=== PATIENT | male | born 1960 | race African-American/Black ===

== ENCOUNTER 2018-01-12 22:27 | Observation (INO) ==
--- NOTE | 2018-01-12 22:49 | DR.GENAD ---
HPI Time Seen Time Seen by Provider: 01/12/18 22:48 HPI Comment HPI Comment: SISTER SAID HER WITH RLQ ABDOMINAL PAIN SEVERAL HOURS AGO. TONIGH HE CALL TO BRING TO [facility]. HE WAS WEAK AND DIAPHORETIC. DENIES TRAUMA. Complaint/Symptoms Chief Complaint Doctors Comments: INCREASING SOB AND GENERALIZE WEAKNESS TIMES SEVERAL HOURS. RLQ ABDOMINAL PAIN WITH NAUSEA SEVERAL HOURS. Chief Complaint:: STATES HAS BEEN HURTING IN SIDE AND SOB ALL DAY Self Treatment fo Chief Complaint: NONE Nurses notes reviewed Nurses Notes Review: Yes Source History Provided: Patient Mode of Arrival Mode of Arrival: Ambulatory Timing Onset of Chief Complaint: 01/12/18 Came on: Suddenly Duration Duration: Unknown Duration: Hours Severity Severity: Moderate Modifying Factors Worsens:: EXERTION Improves:: REST. Associated Signs and Symptoms Associated Signs and Symptoms: SOB. PMH PMH Past Medical History: Yes Past Medical History: Headaches and Hypertension Past Surgical History: No Family History History of Family Medical Conditions: Yes Family Medical History: Diabetes Mellitus and Hypertension Social History Does patient currently use any type of tobacco product: No Have you used tobacco products in the last 12 months: No Type of Tobacco Use: None Does any household member use tobacco: No Alcohol Use: None Do you use any recreational Drugs:: No Lives With: Family Lives Where: Home infectious screening In the last 2 months have you had wt loss of >10#?: NO Have you had fever, night sweats or hemotysis?: No Have you traveled outside the country in the last 6 months?: No Isolation: Standard ROS Review of Systems Constitutional: Weakness and Fatigue; negative Chills and Fever ENTM: No Symptoms Reported Respiratoy: Moist Cough, Orthopnea and Short of Breath Cardiovascular: No Symptoms Reported, See HPI, Edema and Palpitations Gastrointestinal/Abdominal: Abdominal Pain and Nausea Genitourinary: No Symptoms Reported Neurological: No Symptoms Reported Musculoskeletal: No Symptoms Reported Integumentary: Other (EDEMA) Hematologic/Lymphatic: No Symptoms Reported Endocrine: No Symptoms Reported Psychiatric: No Symptoms Reported All Other Systems: Reviewed and Negative PE Vital Signs Vitals: Temperature 99.5 F Pulse Rate [Apical] 88 Pulse Rate 104 Respiratory Rate 20 Blood Pressure [Left Arm] 144/73 Blood Pressure 142/67 O2 Sat by Pulse Oximetry 96 General Limitations: No Limitations General Appearance: Alert and In Distress Head Head Exam: Atraumatic and Normocephalic Eyes Eye exam: PERRL and EOMI; negative Scleral Icterus and Conjunctival Injection ENT ENT Exam: Normal Oropharynx, Normal External Ear Exam, Mucous Membranes Moist and TM's Normal Bilaterally External Ear Exam: Normal External Inspection TM/Canal Exam: Bilateral: Normal Nose Exam: Normal Nose Exam Mouth Exam: Normal Inspection Throat Exam: Normal Inspection Neck Neck Exam: Normal Inspection Chest Chest Inspection: Symmetric Chest Wall Rise Respiratory Respiratory Exam: Respiratory Distress Respiratory Exam: Bilateral: Wheezing and Bilateral: Rhonchi and Lower: Wheezing and Lower: Rhonchi Cardiovascular Cardiovascular Exam: Regular Rate and Normal Rhythm Abdominal Exam Abdominal Exam: Normal Bowel Sounds, Distention and Tenderness Abdominal Tenderness: RLQ Extremities Extremities Exam: Edema (2PLUS LOWER EXTREMITY EDEMA.) Back Back Exam: Normal Inspection Neurologic Neurological Exam: Oriented X3 and CN II-XII Intact; negative Motor Sensory D eficit Psychiatric Psychiatric Exam: Other (SLEEPY.) Skin Skin Exam: Intact and Other (LOWER EXTREMITY EDEMA) MDM Additional Information Additional Information Obtained From: Family Differential Diagnosis Differential Diagnosis: CHEST PAIN, PNEUMONIA, MO, CHF, PE, APPENDICITIS, CHOLECYSTITIS, BOWEL OBS COURSE Treatment Treatment: SEE ORDERS. Consultation Consultation Comments: DISCUSS PATIENT WITH DR. SEGOVIA. HE WILL ADMIT PATIENT. Education/Counseling Education/Counseling: Patient and Family Educated On: Diagnosis ROR Labs Reviewed Laboratory Results Reviewed?: Yes Result Diagrams: 01/12/18 23:01 01/12/18 23:01 Laboratory: WBC 4.8 X10^3/uL (3.6-10.0) 01/12/18 23: RBC 4.74 X10^6/uL (4.7-6.0) 01/12/18 23: Hgb 12.6 g/dL (13.5-18.0) L 01/12/18 23:01 Hct 38.8 % (42.0-54.0) L 01/12/18 23: MCV 81.7 fL (80.0-100.0) 01/12/18 23: MCH 26.6 pg (27.0-34.0) L 01/12/18 23: MCHC 32.5 g/dL (33.0-35.0) L 01/12/18 23: RDW 15.1 % (11.6-16.5) 01/12/18 23:01 Plt Count 256 X10^3/uL (150.0-450.0) 01/12/18 23: MPV 7.5 fL (7.4-11.0) 01/12/18 23: Neut % (Auto) 58.4 % (42.0-75.0) 01/12/18 23: Lymph % (Auto) 31.4 % (21.0-51.0) 01/12/18 23: [place] % (Auto) 6.9 % (0.0-13.0) 01/12/18 23: Eos % (Auto) 2.6 % (0.9-2.9) 01/12/18 23:01 Baso % (Auto) 0.7 % (0.2-1.0) 01/12/18 23: Neut # (Auto) 2.8 x10^3/uL (2.2-4.8) 01/12/18 23: Lymph # (Auto) 1.5 X10^3/uL (1.3-2.9) 01/12/18 23:01 [place] # (Auto) 0.3 x10^3/uL (0.3-0.8) 01/12/18 23:01 Eos # (Auto) 0.1 x10^3/uL (0.0-0.2) 01/12/18 23:01 Baso # (Auto) 0.0 X10^3/uL (0.0-0.1) 01/12/18 23: Absolute Nucleated RBC 0.0 /100WBC 01/12/18 23: INR Target Range - 01/12/18 23: INR 1.02 (0.8-1.3) 01/12/18 23:01 APTT 28.1 SECONDS (22.9-36.5) 01/12/18 23: PTT Comment - 01/12/18 23: D-Dimer 196 ng/mL (0-400) 01/12/18 23:01 Sample Site Lr 01/12/18 22:50 ABG pH 7.420 (7.35-7.45) 01/12/18 22:50 ABG pCO2 50.0 mmHg (35.0-45.0) H 01/12/18 22:50 ABG pO2 63.0 mmHg (80.0-100.0) L 01/12/18 22:50 ABG HCO3 32.4 mmol/L (22-26) H* 01/12/18 22:50 ABG O2 Saturation 92.0 % (90-100) 01/12/18 22:50 ABG Base Excess 6.7 mmol/L (-2.0-2.0) H 01/12/18 22:50 Justice Test Pos 01/12/18 22:50 A-a Gradient 24.0 mmHg 01/12/18 22:50 FiO2 21.0 01/12/18 22:50 Blood Gas Comments Anirudh well ae 01/12/18 22:50 Sodium 141 mmol/L (136-145) 01/12/18 23:01 Corrected Sodium 141 mmol/L (136-145) 01/12/18 23:01 Potassium 3.3 mmol/L (3.5-5.1) L 01/12/18 23: Chloride 103 mmol/L (98-107) 01/12/18 23:01 Carbon Dioxide 27.5 mmol/L (21-32) 01/12/18 23:01 BUN 11 mg/dL (7-18) 01/12/18 23:01 Creatinine 1.38 mg/dL (0.70-1.30) H 01/12/18 23:01 Est GFR (MDRD) Af Amer > 60 (>60) 01/12/18 23:01 Est GFR (MDRD) Non-Af 57 (>60) L 01/12/18 23:01 Glucose 116 mg/dL (65-99) H 01/12/18 23:01 Calcium 8.6 mg/dL (8.5-10.1) 01/12/18 23:01 Corrected Calcium TNP 01/12/18 23:01 Magnesium 1.8 mg/dL (1.7-2.9) 01/12/18 23:01 Total Bilirubin 0.60 mg/dL (0.2-1.0) 01/12/18 23:01 AST 37 Units/L (15-37) 01/12/18 23:01 ALT 51 Units/L (12-78) 01/12/18 23:01 Alkaline Phosphatase 87 Units/L (46-116) 01/12/18 23:01 Creatine Kinase 517 Units/L (39-308) H 01/12/18 23:01 CK-MB (CK-2) 2.3 ng/mL (0-4.0) 01/12/18 23:01 CK/CKMB % Calc 0.4 % (<4) 01/12/18 23:01 Troponin I < 0.02 ng/mL (0-1.5) 01/12/18 23:01 Total Protein 7.5 g/dL (6.4-8.2) 01/12/18 23:01 Albumin 3.5 g/dL (3.4-5.0) 01/12/18 23:01 Globulin 4.0 g/dL (2.5-4.5) 01/12/18 23:01 Albumin/Globulin Ratio 0.9 Ratio (1.1-2.1) L 01/12/18 23:01 Specimen Type Clean catch urine 01/13/18 01:20 Urine Color Yellow (YELLOW) 01/13/18 01:20 Urine Appearance Clear (CLEAR) 01/13/18 01:20 Urine pH 7.0 (5.0 - 8.0) 01/13/18 01:20 Ur Specific [place] 1.010 (1.000-1.030) 01/13/18 01:20 Urine Protein Negative (NEGATIVE) 01/13/18 01:20 Urine Glucose (UA) Negative (NEGATIVE) 01/13/18 01:20 Urine Ketones Negative (NEGATIVE) 01/13/18 01:20 Urine Occult Blood Negative (NEGATIVE) 01/13/18 01:20 Urine Nitrite Negative (NEGATIVE) 01/13/18 01:20 Urine Bilirubin Negative (NEGATIVE) 01/13/18 01:20 Urine Urobilinogen 1+ (NORMAL) 01/13/18 01:20 Ur Leukocyte Esterase Negative (NEGATIVE) 01/13/18 01:20 Urine RBC None seen /HPF (NONE SEEN) 01/13/18 01:20 Urine WBC None seen /HPF (NONE SEEN) 01/13/18 01:20 Ur Squamous Epith Cells Rare /HPF (NEGATIVE) 01/13/18 01:20 Urine Bacteria Negative /HPF (NEGATIVE) 01/13/18 01:20 Ur Culture Indicated? No/not indicated 01/13/18 01:20 XRAY XRAY Interpreted by: Radiologist XRAY Findings: REPORT DISCUSS WITH PATIENT AND HIS SISTER. EKG Fowler: Normal Rhythm: ST Block: None Hypertrophy: None ST: Nonsp (BORDERLINE T WAVE ABNORMALILT.) Diagnosis Discharge Problem: COPD exacerbation, Acute respiratory insufficiency, Abdominal pain in male, Bronchitis
[2018-01-12 23:08] LABS: BASOPHILS % (AUTO) 0.7 % (0.2-1.0); EOSINOPHILS # (AUTO) 0.1 x10^3/uL (0.0-0.2); EOSINOPHILS % (AUTO) 2.6 % (0.9-2.9); HEMATOCRIT 38.8 % (42.0-54.0); HEMOGLOBIN 12.6 g/dL (13.5-18.0); LYMPHOCYTES # (AUTO) 1.5 X10^3/uL (1.3-2.9); LYMPHOCYTES % (AUTO) 31.4 % (21.0-51.0); MEAN CORPUSCULAR HEMOGLOBIN 26.6 pg (27.0-34.0); MEAN CORPUSCULAR HGB CONC 32.5 g/dL (33.0-35.0); MEAN CORPUSCULAR VOLUME 81.7 fL (80.0-100.0); MEAN PLATELET VOLUME 7.5 fL (7.4-11.0); MONOCYTES # (AUTO) 0.3 x10^3/uL (0.3-0.8); MONOCYTES % (AUTO) 6.9 % (0.0-13.0); NEUTROPHILS # (AUTO) 2.8 x10^3/uL (2.2-4.8); NEUTROPHILS % (AUTO) 58.4 % (42.0-75.0); PLATELET COUNT 256 X10^3/uL (150.0-450.0); RED BLOOD COUNT 4.74 X10^6/uL (4.7-6.0); RED CELL DISTRIBUTION WIDTH 15.1 % (11.6-16.5); WHITE BLOOD COUNT 4.8 X10^3/uL (3.6-10.0)
[2018-01-12 23:08] LABS: ABG BASE EXCESS 6.7 mmol/L (-2.0-2.0)
[2018-01-12 23:09] LABS: ABG ALLEN TEST POS; ABG HCO3 32.4 mmol/L (22-26)
[2018-01-12 23:25] LABS: BLOOD UREA NITROGEN 11 mg/dL (7-18); CALCIUM 8.6 mg/dL (8.5-10.1); CARBON DIOXIDE 27.5 mmol/L (21-32); CHLORIDE 103 mmol/L (98-107); COR NA(FOR HYPERGLY) 141 mmol/L (136-145); CREATININE 1.38 mg/dL (0.70-1.30); SODIUM 141 mmol/L (136-145); TROPONIN I < 0.02 ng/mL (0-1.5); eGFR NON BLACK RACES 57 (>60)
[2018-01-12 23:29] LABS: ALANINE AMINOTRANSFERASE 51 Units/L (12-78); ALBUMIN 3.5 g/dL (3.4-5.0); ALKALINE PHOSPHATASE 87 Units/L (46-116); ASPARTATE AMINO TRANSFERASE 37 Units/L (15-37); CKMB % 0.4 % (<4); CREATINE KINASE 517 Units/L (39-308); CREATINE KINASE MB 2.3 ng/mL (0-4.0); MAGNESIUM 1.8 mg/dL (1.7-2.9); TOTAL PROTEIN 7.5 g/dL (6.4-8.2)
--- NOTE | 2018-01-13 00:36 | RAD ---
HISTORY: 57-year-old male with shortness of breath. Study: Frontal view of the chest. Comparison: None. Findings: The trachea is midline. The cardiac silhouette is enlarged with low lung volumes and prominent interstitium. No effusion, pneumothorax or consolidation. Soft tissues are unremarkable. Osseous structures are unremarkable. IMPRESSION: 1. Cardiomegaly with findings consistent with chronic interstitial disease suggesting COPD. Reported By:
[2018-01-13] MEDS ORDERED: DUONEB 0.5 MG/3 MG NEB ONE (00:42)
[2018-01-13] MEDS ORDERED: LASIX IVP ONE ×2 (00:42→00:56)
[2018-01-13] MEDS ORDERED: SOLU-Medrol 125 MG VIAL IVP ONE (00:42)
[2018-01-13] MEDS ORDERED: ROCEPHIN VIAL 1 GRAM IVP ONE (00:52)
[2018-01-13] MEDS ORDERED: SOLU-Medrol 125 MG VIAL ONE (00:55)
[2018-01-13] MEDS ORDERED: ROCEPHIN VIAL 1 GRAM ONE (00:55)
[2018-01-13] MEDS ORDERED: K-LYTE EFFERVESCENT PO ONE (01:13)
[2018-01-13] MEDS ORDERED: K-LYTE EFFERVESCENT ONE (01:25)
[2018-01-13 01:31] LABS: BILIRUBIN,URINE NEGATIVE (NEGATIVE); BLOOD/HEMOGLOBIN,URINE NEGATIVE (NEGATIVE); GLUCOSE, URINE NEGATIVE (NEGATIVE); KETONES,URINE NEGATIVE (NEGATIVE); LEUKOCYTE ESTERASE ,URINE NEGATIVE (NEGATIVE); NITRITES,URINE NEGATIVE (NEGATIVE); PROTEIN,URINE NEGATIVE (NEGATIVE); UROBILINOGEN,URINE 1+ (NORMAL)
[2018-01-13 01:33] LABS: APPEARANCE,URINE CLEAR (CLEAR); COLOR,URINE YELLOW (YELLOW)
[2018-01-13 01:34] LABS: BACTERIA,URINE NEGATIVE /HPF (NEGATIVE); RBC,URINE NONE SEEN /HPF (NONE SEEN); SQUAMOUS EPITHELIAL CELL,UR RARE /HPF (NEGATIVE)
--- NOTE | 2018-01-13 04:30 | CT ---
CT ABDOMEN AND PELVIS WITH ORAL AND IV CONTRAST CLINICAL HISTORY: 57-year-old male with right lower quadrant pain and shortness of breath. COMPARISON: None. TECHNIQUE: Multiple contiguous axial images were obtained following the administration of 100 mL Omnipaque 350 intravenously and oral contrast. Images were reformatted in the coronal and sagittal planes. FINDINGS: The lung bases are clear without pulmonary nodules, masses, or pleural fluid collections. The inferior imaged heart is normal in size and there is no pericardial effusion. Diffuse hepatic steatosis without focal mass lesion or biliary ductal dilatation. Spleen, pancreas and gallbladder are unremarkable. The adrenal glands are normal bilaterally. The kidneys perfuse in a normal fashion and the ureters run in an unobstructed course to a moderately distended urinary bladder. No nephroureterolithiasis or hydroureteronephrosis. The prostate, seminal vesicles, and external genitalia are within normal limits. The bowel is without obstruction or inflammation and there is no free fluid or free air within the peritoneal cavity. Appendix is normal. Diverticulosis without CT evidence of diverticulitis. There are no pathologically enlarged lymph nodes in the abdomen or pelvis. The arteriovascular structures are within normal limits. Soft tissues are normal. The osseous structures are intact without fracture or malalignment. IMPRESSION: 1. No acute intra-abdominal or pelvic pathology. 2. Hepatic steatosis, correlate with serology. 3. Normal appendix. 4. Diverticulosis without CT evidence of diverticulitis. Reported By:
[2018-01-13 05:43] LABS: BASOPHILS % (AUTO) 0.4 % (0.2-1.0); EOSINOPHILS % (AUTO) 0.3 % (0.9-2.9); HEMATOCRIT 41.8 % (42.0-54.0); HEMOGLOBIN 13.7 g/dL (13.5-18.0); LYMPHOCYTES # (AUTO) 0.6 X10^3/uL (1.3-2.9); LYMPHOCYTES % (AUTO) 12.1 % (21.0-51.0); MEAN CORPUSCULAR HEMOGLOBIN 26.7 pg (27.0-34.0); MEAN CORPUSCULAR HGB CONC 32.8 g/dL (33.0-35.0); MEAN CORPUSCULAR VOLUME 81.6 fL (80.0-100.0); MEAN PLATELET VOLUME 7.6 fL (7.4-11.0); MONOCYTES # (AUTO) 0.1 x10^3/uL (0.3-0.8); MONOCYTES % (AUTO) 1.6 % (0.0-13.0); NEUTROPHILS # (AUTO) 4.2 x10^3/uL (2.2-4.8); NEUTROPHILS % (AUTO) 85.6 % (42.0-75.0); PLATELET COUNT 291 X10^3/uL (150.0-450.0); RED BLOOD COUNT 5.13 X10^6/uL (4.7-6.0); RED CELL DISTRIBUTION WIDTH 15.1 % (11.6-16.5); WHITE BLOOD COUNT 4.9 X10^3/uL (3.6-10.0)
[2018-01-13 06:00] LABS: ALANINE AMINOTRANSFERASE 57 Units/L (12-78); ALBUMIN 3.8 g/dL (3.4-5.0); ALKALINE PHOSPHATASE 96 Units/L (46-116); ASPARTATE AMINO TRANSFERASE 40 Units/L (15-37); BLOOD UREA NITROGEN 13 mg/dL (7-18); CHLORIDE 102 mmol/L (98-107); CHOL/HDL RATIO 4.4 (0.0-5.0); CHOLESTEROL 198 mg/dL (0-200); COR NA(FOR HYPERGLY) 141 mmol/L (136-145); CREATININE 1.41 mg/dL (0.70-1.30); HDL CHOLESTEROL 45 mg/dL (40-60); SODIUM 139 mmol/L (136-145); TOTAL PROTEIN 8.3 g/dL (6.4-8.2); TRIGLYCERIDES 52 mg/dL (0-150); eGFR NON BLACK RACES 55 (>60)
[2018-01-13 06:13] LABS: BILIRUBIN,URINE NEGATIVE (NEGATIVE); BLOOD/HEMOGLOBIN,URINE NEGATIVE (NEGATIVE); GLUCOSE, URINE NEGATIVE (NEGATIVE); KETONES,URINE NEGATIVE (NEGATIVE); LEUKOCYTE ESTERASE ,URINE NEGATIVE (NEGATIVE); NITRITES,URINE NEGATIVE (NEGATIVE); PROTEIN,URINE 1+ (NEGATIVE); UROBILINOGEN,URINE NORMAL (NORMAL)
[2018-01-13 06:26] LABS: CKMB % 0.3 % (<4); CREATINE KINASE 556 Units/L (39-308); CREATINE KINASE MB 1.5 ng/mL (0-4.0); TROPONIN I < 0.02 ng/mL (0-1.5)
[2018-01-13 06:34] LABS: APPEARANCE,URINE CLEAR (CLEAR); COLOR,URINE YELLOW (YELLOW); RBC,URINE NONE SEEN /HPF (NONE SEEN)
[2018-01-13 06:35] LABS: BACTERIA,URINE NEGATIVE /HPF (NEGATIVE); MUCUS,URINE FEW /HPF (NEGATIVE); SQUAMOUS EPITHELIAL CELL,UR RARE /HPF (NEGATIVE)
[2018-01-13] MEDS ORDERED: NS 500 ML IV 500 ML IV ONE (07:53)
[2018-01-13] MEDS: KLOR-CON PO SCH (08:06)
[2018-01-13] MEDS: LASIX IVP SCH (08:06)
[2018-01-13] MEDS: LEVAQUIN PREMIX IV 500 MG 500 MG/100 ML BAG IV SCH (08:06)
[2018-01-13] MEDS: DUONEB 0.5 MG/3 MG NEB SCH ×5 (09:18→20:52)
--- NOTE | 2018-01-13 10:09 | RAD ---
History: Shortness of breath Study: PA and lateral chest Comparison: Yesterday Findings: The lungs are clear and the heart and mediastinum are unremarkable. There is no edema or effusion or congestion. Impression: No acute cardiopulmonary disease Reported By:
[2018-01-13 10:18] LABS: ABG BASE EXCESS 4.5 mmol/L (-2.0-2.0)
[2018-01-13 10:20] LABS: ABG HCO3 30.8 mmol/L (22-26)
[2018-01-13 10:21] LABS: ABG ALLEN TEST POS
[2018-01-13 11:48] LABS: CKMB % 0.3 % (<4); CREATINE KINASE 638 Units/L (39-308); CREATINE KINASE MB 2.2 ng/mL (0-4.0); TROPONIN I < 0.02 ng/mL (0-1.5)
--- NOTE | 2018-01-13 13:12 | DR.H&P ---
H&P - History & Physical for Day of: H&P Date: 01/12/18 - Chief Complaint Chief Complaint: SOB, WEAKNESS - History of Present Illness History of Present Illness: 57 BM ER ADMISSION AFTER PRESENTING WITH CO SOB AND WEAKNESS WITH RUQ PAIN ONSET YESTERDAY, DENIES FEVER N/V. PT HAD CXR IN ER WITH COPD FINDINGS, PT HAS PMH OF HTN, DENIES DM OR CAD. PT DENIES SMOKING OR KNOWN ASTHMA. PT TAKES BENICAR FOR HTN. PT ADMITTED FOR TREATMENT OF SOB, COPD EXACERBATION - Past Medical History Past Medical History: Hypertension, Headaches - Family History Family Medical History: Diabetes Mellitus, Hypertension - Social History Does patient currently use any type of tobacco product: No Have you used tobacco products in the last 12 months: No Type of Tobacco Use: None Does any household member use tobacco: No Alcohol Use: Rarely Drug Use: None - Medications Home Medications: No Known Drug Allergies Allergy (Verified 01/12/18 22:42) - Review of Systems Constitutional: Chills, Weakness Eyes: No Symptoms Reported ENT: No Symptoms Reported Respiratory: Shortness of Breath Gastrointestinal: Nausea, Abdominal Pain Genitourinary: No Symptoms Reported Musculoskeletal: No Symptoms Reported Skin: No Symptoms Reported Neurological: Weakness - Physical Exam Vital Signs: Temperature 98.5 F Pulse Rate [Apical] 99 Pulse Rate 104 Respiratory Rate 20 Blood Pressure [Right Arm] 153/75 Blood Pressure [Left Arm] 160/77 Blood Pressure 142/67 O2 Sat by Pulse Oximetry 96 Oriented: Normal, Person Ear: Normal Nose: Normal Throat: Normal Respiratory: RLL Diminished, LLL Diminished Cardiovascular: Normal, Edema (BILATERAL LE TRACE EDEMA) Auscultation: Bowel Sounds: Normal Palpation: Normal Tenderness: Normal Skin: Normal Musculoskeletal: Normal Psychiatric: Anxiety Affect: Anxious Speech Pattern: Clear, Appropriate - Assessment/Plan (1) Acute respiratory insufficiency Status: Acute Plan: ADMIT, SERIAL CE, EKG. RESP CONSULT, SUPPLEMENTAL O2. REPEAT AM CXR, IV LASIX, STRICT I & OS. VERIFY HOME MEDICATION (2) Hypertension Status: Acute (3) COPD exacerbation Status: Acute (4) Bronchitis Status: Acute - Allergies Allergies/Adverse Reactions: Allergies Allergy/AdvReac Type Severity Reaction Status Date / Time No Known Drug Allergies Allergy Verified 01/12/18 22:42
--- NOTE | 2018-01-13 13:23 | PCM.PROG ---
Progress Note - Progress Note for Day of Date of Exam: 01/13/18 - Subjective Subjective: 57 BM ER ADMISSION ON 01/12 WITH CO WEAKNESS AND SOB. PT CXR HAD FINDINGS CONSISTENT WITH COPD. PT CONTINUES WITH CO SOB THIS AM, REVIEWED CE AND EKG WITH PT, DENIES PAIN THIS AM. PT CURRENTLY ON IV ATBX, RESP THERAPY, CTA CHEST ORDERED R/O PE - Past Medical Family Social History Past Med/Fam/Surg Hx: No changes since H&P Allergies: Allergies No Known Drug Allergies Allergy (Verified 01/12/18 22:42) - Review of Systems ROS: No change since H&P - Vital Signs and I&O's Vital Signs: Temperature 98.1 F Pulse Rate [Apical] 110 Pulse Rate 104 Respiratory Rate 20 Blood Pressure [Right Arm] 153/75 Blood Pressure [Left Arm] 151/79 Blood Pressure 142/67 O2 Sat by Pulse Oximetry 95 Intake and Output: Intake & Output 01/11/18 01/12/18 01/13/18 01/14/18 11:59 11:59 11:59 11:59 Intake Total 230 / 230 Output Total 1600 / 1600 Balance -1370 / -1370 - Physical Exam Oriented: Normal, Person Ear: Normal Nose: Normal Throat: Normal Respiratory: Diminished Cardiovascular: Normal, Edema (BILATERAL LE TRACE EDEMA) Auscultation: Bowel Sounds: Normal Tenderness: Normal Skin: Normal Musculoskeletal: Normal Psychiatric: Anxiety Affect: Anxious Speech Pattern: Clear, Appropriate - Laboratory and Diagnostics Result Diagrams: 01/13/18 05:20 01/13/18 05:20 Labs: Laboratory WBC 4.9 X10^3/uL (3.6-10.0) 01/13/18 05:20 RBC 5.13 X10^6/uL (4.7-6.0) 01/13/18 05:20 Hgb 13.7 g/dL (13.5-18.0) 01/13/18 05:20 Hct 41.8 % (42.0-54.0) L 01/13/18 05:20 MCV 81.6 fL (80.0-100.0) 01/13/18 05:20 MCH 26.7 pg (27.0-34.0) L 01/13/18 05:20 MCHC 32.8 g/dL (33.0-35.0) L 01/13/18 05:20 RDW 15.1 % (11.6-16.5) 01/13/18 05:20 Plt Count 291 X10^3/uL (150.0-450.0) 01/13/18 05:20 MPV 7.6 fL (7.4-11.0) 01/13/18 05:20 Neut % (Auto) 85.6 % (42.0-75.0) H 01/13/18 05:20 Lymph % (Auto) 12.1 % (21.0-51.0) L 01/13/18 05:20 [place] % (Auto) 1.6 % (0.0-13.0) 01/13/18 05:20 Eos % (Auto) 0.3 % (0.9-2.9) L 01/13/18 05:20 Baso % (Auto) 0.4 % (0.2-1.0) 01/13/18 05:20 Neut # (Auto) 4.2 x10^3/uL (2.2-4.8) 01/13/18 05:20 Lymph # (Auto) 0.6 X10^3/uL (1.3-2.9) L 01/13/18 05:20 [place] # (Auto) 0.1 x10^3/uL (0.3-0.8) L 01/13/18 05:20 Eos # (Auto) 0.0 x10^3/uL (0.0-0.2) 01/13/18 05:20 Baso # (Auto) 0.0 X10^3/uL (0.0-0.1) 01/13/18 05:20 Absolute Nucleated RBC 0.0 /100WBC 01/13/18 05:20 INR Target Range - 01/12/18 23:01 INR 1.02 (0.8-1.3) 01/12/18 23:01 APTT 28.1 SECONDS (22.9-36.5) 01/12/18 23:01 PTT Comment - 01/12/18 23:01 D-Dimer 196 ng/mL (0-400) 01/12/18 23:01 Sample Site Rrad 01/13/18 10:13 ABG pH 7.380 (7.35-7.45) 01/13/18 10:13 ABG pCO2 52.0 mmHg (35.0-45.0) H* 01/13/18 10:13 ABG pO2 60.0 mmHg (80.0-100.0) L 01/13/18 10:13 ABG HCO3 30.8 mmol/L (22-26) H* 01/13/18 10:13 ABG O2 Saturation 90.0 % (90-100) 01/13/18 10:13 ABG Base Excess 4.5 mmol/L (-2.0-2.0) H 01/13/18 10:13 Justice Test Pos 01/13/18 10:13 A-a Gradient 25.0 mmHg 01/13/18 10:13 FiO2 21.0 01/13/18 10:13 Blood Gas Comments Anirudh well 01/13/18 10:13 Sodium 139 mmol/L (136-145) 01/13/18 05:20 Corrected Sodium 141 mmol/L (136-145) 01/13/18 05:20 Potassium 4.0 mmol/L (3.5-5.1) 01/13/18 05:20 Chloride 102 mmol/L (98-107) 01/13/18 05:20 Carbon Dioxide 27.0 mmol/L (21-32) 01/13/18 05:20 BUN 13 mg/dL (7-18) 01/13/18 05:20 Creatinine 1.41 mg/dL (0.70-1.30) H 01/13/18 05:20 Est GFR (MDRD) Af Amer > 60 (>60) 01/13/18 05:20 Est GFR (MDRD) Non-Af 55 (>60) L 01/13/18 05:20 Glucose 172 mg/dL (65-99) H 01/13/18 05:20 Calcium 9.0 mg/dL (8.5-10.1) 01/13/18 05:20 Corrected Calcium TNP 01/13/18 05:20 Magnesium 1.8 mg/dL (1.7-2.9) 01/12/18 23:01 Total Bilirubin 0.40 mg/dL (0.2-1.0) 01/13/18 05:20 AST 40 Units/L (15-37) H 01/13/18 05:20 ALT 57 Units/L (12-78) 01/13/18 05:20 Alkaline Phosphatase 96 Units/L (46-116) 01/13/18 05:20 Creatine Kinase 638 Units/L (39-308) H 01/13/18 11:18 CK-MB (CK-2) 2.2 ng/mL (0-4.0) 01/13/18 11:18 CK/CKMB % Calc 0.3 % (<4) 01/13/18 11:18 Troponin I < 0.02 ng/mL (0-1.5) 01/13/18 11:18 Total Protein 8.3 g/dL (6.4-8.2) H 01/13/18 05:20 Albumin 3.8 g/dL (3.4-5.0) 01/13/18 05:20 Globulin 4.5 g/dL (2.5-4.5) 01/13/18 05:20 Albumin/Globulin Ratio 0.8 Ratio (1.1-2.1) L 01/13/18 05:20 Triglycerides 52 mg/dL (0-150) 01/13/18 05:20 Cholesterol 198 mg/dL (0-200) 01/13/18 05:20 LDL Cholesterol, Calc 143 mg/dL (0-100) H 01/13/18 05:20 HDL Cholesterol 45 mg/dL (40-60) 01/13/18 05:20 Cholesterol/HDL Ratio 4.4 (0.0-5.0) 01/13/18 05:20 Specimen Type Clean catch urine 01/13/18 06:01 Urine Color Yellow (YELLOW) 01/13/18 06:01 Urine Appearance Clear (CLEAR) 01/13/18 06:01 Urine pH 7.0 (5.0 - 8.0) 01/13/18 06:01 Ur Specific [place] 1.010 (1.000-1.030) 01/13/18 06:01 Urine Protein 1+ (NEGATIVE) 01/13/18 06:01 Urine Glucose (UA) Negative (NEGATIVE) 01/13/18 06:01 Urine Ketones Negative (NEGATIVE) 01/13/18 06:01 Urine Occult Blood Negative (NEGATIVE) 01/13/18 06:01 Urine Nitrite Negative (NEGATIVE) 01/13/18 06:01 Urine Bilirubin Negative (NEGATIVE) 01/13/18 06:01 Urine Urobilinogen Normal (NORMAL) 01/13/18 06:01 Ur Leukocyte Esterase Negative (NEGATIVE) 01/13/18 06:01 Urine RBC None seen /HPF (NONE SEEN) 01/13/18 06:01 Urine WBC 0-2 /HPF (NONE SEEN) 01/13/18 06:01 Ur Squamous Epith Cells Rare /HPF (NEGATIVE) 01/13/18 06:01 Urine Bacteria Negative /HPF (NEGATIVE) 01/13/18 06:01 Urine Mucus Few /HPF (NEGATIVE) 01/13/18 06:01 Ur Culture Indicated? No/not indicated 01/13/18 06:01 - Plan (1) Acute respiratory insufficiency Status: Acute Plan: SERIAL CE, EKG ON ADMISSION. RESP CONSULT, SUPPLEMENTAL O2, IV LASIX, STRICT I & OS. VERIFY HOME MEDICATION. CTA CHEST, REPEAT ABD ON ROOM AIR (2) Hypertension Status: Acute (3) COPD exacerbation Status: Acute (4) Bronchitis Status: Acute
[2018-01-14] MEDS: DUONEB 0.5 MG/3 MG NEB SCH ×3 (00:58→08:55)
[2018-01-14 05:31] LABS: BASOPHILS # (AUTO) 0.1 X10^3/uL (0.0-0.1); BASOPHILS % (AUTO) 0.9 % (0.2-1.0); EOSINOPHILS % (AUTO) 0.4 % (0.9-2.9); HEMATOCRIT 39.2 % (42.0-54.0); HEMOGLOBIN 12.8 g/dL (13.5-18.0); LYMPHOCYTES # (AUTO) 1.9 X10^3/uL (1.3-2.9); LYMPHOCYTES % (AUTO) 19.6 % (21.0-51.0); MEAN CORPUSCULAR HEMOGLOBIN 26.5 pg (27.0-34.0); MEAN CORPUSCULAR HGB CONC 32.6 g/dL (33.0-35.0); MEAN CORPUSCULAR VOLUME 81.4 fL (80.0-100.0); MEAN PLATELET VOLUME 7.8 fL (7.4-11.0); MONOCYTES # (AUTO) 0.8 x10^3/uL (0.3-0.8); MONOCYTES % (AUTO) 8.1 % (0.0-13.0); NEUTROPHILS # (AUTO) 6.9 x10^3/uL (2.2-4.8); PLATELET COUNT 296 X10^3/uL (150.0-450.0); RED BLOOD COUNT 4.81 X10^6/uL (4.7-6.0); RED CELL DISTRIBUTION WIDTH 15.2 % (11.6-16.5); WHITE BLOOD COUNT 9.7 X10^3/uL (3.6-10.0)
[2018-01-14 05:40] LABS: ALANINE AMINOTRANSFERASE 54 Units/L (12-78); ALBUMIN 3.3 g/dL (3.4-5.0); ALKALINE PHOSPHATASE 89 Units/L (46-116); ASPARTATE AMINO TRANSFERASE 44 Units/L (15-37); BLOOD UREA NITROGEN 13 mg/dL (7-18); CALCIUM 8.4 mg/dL (8.5-10.1); CARBON DIOXIDE 26.1 mmol/L (21-32); CHLORIDE 103 mmol/L (98-107); COR NA(FOR HYPERGLY) 144 mmol/L (136-145); CREATININE 1.19 mg/dL (0.70-1.30); SODIUM 141 mmol/L (136-145); TOTAL PROTEIN 7.5 g/dL (6.4-8.2); eGFR NON BLACK RACES > 60 (>60)
[2018-01-14] MEDS ORDERED: NS 100 ML IV 100 ML IV ONE (06:07)
--- NOTE | 2018-01-14 07:13 | CT ---
HISTORY: Shortness of breath Study: CTA chest with contrast for pulmonary embolus Comparison: None Technique: Axial post-contrast images with coronal, sagittal, and three-dimensional maximum intensity projection images obtained and evaluated. Dose reduction procedures were used with mA/kv adjusted for body size. Findings: The examination is nondiagnostic for the determination of acute pulmonary thromboembolic disease due to suboptimal bolus timing. Examination of the mediastinum demonstrated no evidence for mediastinal masses, enlarged lymphadenopathy, or enlarged hilar adenopathy. No pleural effusions are identified. No chest wall or axillary abnormality is identified. Those portions of the upper abdominal organs visualized were within normal limits. Examination of the lung jaeger demonstrated no significant nodules, masses, alveolar infiltrates, areas of consolidation, peribronchial thickening, or bronchiectasis. IMPRESSION: The examination is nondiagnostic for the determination of acute pulmonary thromboembolic disease due to suboptimal bolus timing Lungs clear Reported By:
[2018-01-14] MEDS: LASIX IVP SCH (08:25)
[2018-01-14] MEDS: LEVAQUIN PREMIX IV 500 MG 500 MG/100 ML BAG IV SCH (08:26)
[2018-01-14] MEDS: KLOR-CON PO SCH (08:28)
[2018-01-14] MEDS ORDERED: SOLU-Medrol 40 MG VIAL IVP SCH (09:00)
[2018-01-14 09:04] VITALS: BP 171/87
[2018-01-14 09:43] VITALS: BMI 47.0
[2018-01-14 12:19] LABS: ABG BASE EXCESS 4.4 mmol/L (-2.0-2.0)
[2018-01-14 12:20] LABS: ABG ALLEN TEST POS; ABG HCO3 31.1 mmol/L (22-26); FRACTIONATED INSPIRED OXYGEN 21
== END 2018-01-14 13:15 | disposition home or self-care (01) ==
LOC: ER 22:31 → MED/SURG 22:31
PROVIDERS: ADMIT Internal Medicine; ATTEND Internal Medicine
DX: K52.89 Other specified noninfective gastroenteritis and colitis; R06.89 Other abnormalities of breathing; R10.31 Right lower quadrant pain; J20.8 Acute bronchitis due to other specified organisms; R06.02 Shortness of breath; R60.0 Localized edema; R94.4 Abnormal results of kidney function studies; R10.84 Generalized abdominal pain; R53.1 Weakness; J44.1 Chronic obstructive pulmonary disease with (acute) exacerbation; R94.31 Abnormal electrocardiogram [ECG] [EKG]; R07.89 Other chest pain; I51.7 Cardiomegaly
CPT/HCPCS: 36415; 36600; 71010; 71020; 71045; 71046; 71275; 74177; 80053; 80061; 81001; 82550; 82553; 82803; 83735; 84484; 85025; 85378; 85610; 85730; 87040; 93005; 93010; 94640; 94760; 96365; 96372; 96374; 96375; 99284; A4216; A4222; G0378; J0696; J1940; J1956; J2920; J2930; J7040; J7620; J8499

== ENCOUNTER 2019-08-08 18:43 | Inpatient (IN) ==
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
[2019-08-08] MEDS ORDERED: LASIX IVP ONE ×2 (20:07→20:37)
[2019-08-08 20:19] LABS: BILIRUBIN,URINE NEGATIVE (NEGATIVE); BLOOD/HEMOGLOBIN,URINE NEGATIVE (NEGATIVE); GLUCOSE, URINE NEGATIVE (NEGATIVE); KETONES,URINE NEGATIVE (NEGATIVE); LEUKOCYTE ESTERASE ,URINE NEGATIVE (NEGATIVE); NITRITES,URINE NEGATIVE (NEGATIVE); PROTEIN,URINE 1+ (NEGATIVE); UROBILINOGEN,URINE NORMAL (NORMAL)
[2019-08-08 20:23] LABS: APPEARANCE,URINE CLEAR (CLEAR); COLOR,URINE YELLOW (YELLOW)
[2019-08-08 20:33] LABS: BACTERIA,URINE NEGATIVE /HPF (NEGATIVE); CALCIUM OXALATE CRYSTALS,UR MODERATE /HPF (NEGATIVE); MUCUS,URINE FEW /HPF (NEGATIVE); RBC,URINE NONE SEEN /HPF (0-3); SQUAMOUS EPITHELIAL CELL,UR RARE /HPF (NEGATIVE)
--- NOTE | 2019-08-08 20:43 | CT ---
HISTORYPatient stated he passed out twice a day.STUDYBRAIN W/O CONCOMPARISONJune 2017.TECHNIQUEMultiple axial images of the head were obtained from the skull base to the vertex without administration of IV contrast. Sagittal and coronal reformatted images were performed. Automated exposure control (AEC) was utilized to adjust the MA and/or kV.FINDINGSThe sulci, cisterns and ventricles are age appropriate. There is no evidence of acute territorial infarction, hemorrhage, mass, mass effect, or midline shift. There are no abnormal intra-axial or extra-axial fluid collections.There is no evidence of acute osseous abnormality. There is a chronic nasal bone fracture on the left. There is no significant soft tissue swelling. Visualized paranasal sinuses and mastoid air cells are predominately clear.IMPRESSION1. No evidence of acute intracranial abnormality.Electronically signed by: MIRTHA GUALLPA (Aug 08, 2019 20:42:04)
[2019-08-08 20:52] LABS: BASOPHILS % (AUTO) 0.6 % (0.2-1.0); EOSINOPHILS # (AUTO) 0.2 x10^3/uL (0.0-0.2); EOSINOPHILS % (AUTO) 2.9 % (0.9-2.9); HEMATOCRIT 37.8 % (42.0-54.0); HEMOGLOBIN 12.3 g/dL (13.5-18.0); LYMPHOCYTES # (AUTO) 1.7 X10^3/uL (1.3-2.9); LYMPHOCYTES % (AUTO) 30.7 % (21.0-51.0); MEAN CORPUSCULAR HEMOGLOBIN 26.7 pg (27.0-34.0); MEAN CORPUSCULAR HGB CONC 32.4 g/dL (33.0-35.0); MEAN CORPUSCULAR VOLUME 82.3 fL (80.0-100.0); MEAN PLATELET VOLUME 7.6 fL (7.4-11.0); MONOCYTES # (AUTO) 0.5 x10^3/uL (0.3-0.8); MONOCYTES % (AUTO) 8.2 % (0.0-13.0); NEUTROPHILS # (AUTO) 3.2 x10^3/uL (2.2-4.8); NEUTROPHILS % (AUTO) 57.6 % (42.0-75.0); PLATELET COUNT 253 X10^3/uL (150.0-450.0); RED BLOOD COUNT 4.59 X10^6/uL (4.7-6.0); RED CELL DISTRIBUTION WIDTH 15.8 % (11.6-16.5); WHITE BLOOD COUNT 5.5 X10^3/uL (3.6-10.0)
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
[2019-08-08 21:07] LABS: BLOOD UREA NITROGEN 8 mg/dL (7-18); CALCIUM 8.9 mg/dL (8.5-10.1); CARBON DIOXIDE 31.7 mmol/L (21-32); CHLORIDE 104 mmol/L (98-107); COR NA(FOR HYPERGLY) 140 mmol/L (136-145); CREATININE 1.57 mg/dL (0.70-1.30); SODIUM 139 mmol/L (136-145); TROPONIN I < 0.02 ng/mL (0-1.5); eGFR NON BLACK RACES 49 (>60)
[2019-08-08 21:12] LABS: ALANINE AMINOTRANSFERASE 35 Units/L (12-78); ALBUMIN 3.3 g/dL (3.4-5.0); ALKALINE PHOSPHATASE 91 Units/L (46-116); ASPARTATE AMINO TRANSFERASE 23 Units/L (15-37); CKMB % 0.4 % (<4); COR CA(FOR HYPOALB) 9.5 mg/dL (8.5-10.1); CREATINE KINASE 267 Units/L (39-308); CREATINE KINASE MB < 1.0 ng/mL (0-4.0); MAGNESIUM 2.2 mg/dL (1.7-2.9); TOTAL PROTEIN 7.1 g/dL (6.4-8.2)
--- NOTE | 2019-08-08 22:26 | CT ---
HISTORYSYNCOPE, ABNORMAL D-DIMERSTUDYCTA [id number] axial images of the chest were obtained from the thoracic inlet to the upper abdomen after the administration of IV contrast. 3D reconstructions utilizing axi al MIPS imaging was performed and reviewed. Dose reduction techniques including Automated Exposure C ontrol (AEC) and adjustment of mA and kV were utilized.FINDINGSThe mediastinum does not demonstrate s ignificant pathological lymphadenopathy. There is no paracardial effusion observed. The thoracic ao rta is normal in its contour without evidence for aneurysmal dilatation. There are several small emily ling defects within segmental and subsegmental branches supplying the right and left upper and lower lobes. No large emboli are seen within the pulmonary trunk or main right and left pulmonary arteries. There is no CT evidence of right heart strain.Evaluation of the lung parenchyma fails to demonstrate focal consolidation or effusion . No pulmonary nodule or mass can be identified. The bony thorax is unremarkable in its appearance . The visualized portions of the upper abdomen are grossly unremarkab le .IMPRESSIONAcute pulmonary embolic disease with several small filling defects within segmental and subsegmental branches supplying the right and left upper and lower lobes. Clot burden low.The availa bility of the report and findings were communicated to Dr. Marrero by call support on 10:[address] Gerald Anne.Electronically signed by: Gerald Anne (Aug 08, 2019 22:24:12)
[2019-08-09] MEDS ORDERED: HumuLIN R SC PRN (00:41)
[2019-08-09] MEDS ORDERED: HEPARIN SODIUM INJ 5000 UNITS ONE ×3 (00:59→15:56)
[2019-08-09] MEDS ORDERED: HEPARIN SODIUM IN D5W 25,000 UNITS/500 ML BAG IV ONE (01:00)
[2019-08-09] MEDS: HEPARIN SODIUM IN D5W 25,000 UNITS/500 ML BAG IV PRN (01:13)
[2019-08-09] MEDS ORDERED: HEPARIN SODIUM INJ 5000 UNITS IVP ONE ×3 (01:34→15:29)
[2019-08-09] MEDS: NS 1000 ML 1,000 ML IV SCH ×2 (02:17→18:22)
[2019-08-09] MEDS: PEPCID 20 MG IV PREMIX* 20 MG/50 ML BAG IV SCH ×3 (02:18→21:11)
[2019-08-09 02:43] VITALS: BMI 50.5
[2019-08-09 07:28] LABS: BASOPHILS % (AUTO) 0.6 % (0.2-1.0); EOSINOPHILS # (AUTO) 0.1 x10^3/uL (0.0-0.2); EOSINOPHILS % (AUTO) 3.1 % (0.9-2.9); HEMATOCRIT 39.1 % (42.0-54.0); HEMOGLOBIN 12.5 g/dL (13.5-18.0); LYMPHOCYTES # (AUTO) 1.4 X10^3/uL (1.3-2.9); LYMPHOCYTES % (AUTO) 29.8 % (21.0-51.0); MEAN CORPUSCULAR HEMOGLOBIN 26.6 pg (27.0-34.0); MEAN CORPUSCULAR HGB CONC 32.1 g/dL (33.0-35.0); MEAN CORPUSCULAR VOLUME 82.9 fL (80.0-100.0); MEAN PLATELET VOLUME 7.2 fL (7.4-11.0); MONOCYTES # (AUTO) 0.4 x10^3/uL (0.3-0.8); MONOCYTES % (AUTO) 8.9 % (0.0-13.0); NEUTROPHILS # (AUTO) 2.6 x10^3/uL (2.2-4.8); NEUTROPHILS % (AUTO) 57.6 % (42.0-75.0); PLATELET COUNT 271 X10^3/uL (150.0-450.0); RED BLOOD COUNT 4.72 X10^6/uL (4.7-6.0); RED CELL DISTRIBUTION WIDTH 15.6 % (11.6-16.5); WHITE BLOOD COUNT 4.6 X10^3/uL (3.6-10.0)
[2019-08-09 07:39] LABS: ALANINE AMINOTRANSFERASE 34 Units/L (12-78); ALBUMIN 3.3 g/dL (3.4-5.0); ALKALINE PHOSPHATASE 88 Units/L (46-116); ASPARTATE AMINO TRANSFERASE 21 Units/L (15-37); BLOOD UREA NITROGEN 10 mg/dL (7-18); CALCIUM 8.9 mg/dL (8.5-10.1); CARBON DIOXIDE 33.1 mmol/L (21-32); CHLORIDE 102 mmol/L (98-107); COR CA(FOR HYPOALB) 9.5 mg/dL (8.5-10.1); COR NA(FOR HYPERGLY) 141 mmol/L (136-145); CREATININE 1.42 mg/dL (0.70-1.30); SODIUM 140 mmol/L (136-145); TOTAL PROTEIN 7.2 g/dL (6.4-8.2); eGFR NON BLACK RACES 55 (>60)
[2019-08-09] MEDS ORDERED: NS 500 ML IV 500 ML IV ONE (09:22)
[2019-08-09 11:54] LABS: ERYTHROCYTE SEDIMENTATION RATE 36 MM/HOUR (0-15)
[2019-08-09] MEDS ORDERED: CARDIZEM INJ 125 MG VIAL 125 MG in NS 100 ML IV 100 ML IV PRN (12:12)
[2019-08-09] MEDS ORDERED: LANOXIN INJ IVP ONE (12:14)
[2019-08-09] MEDS ORDERED: NORCO 5/325 MG TAB ONE (13:41)
[2019-08-09] MEDS: NORCO 5/325 MG TAB PO PRN ×2 (13:43→21:31)
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
[2019-08-10] MEDS ORDERED: HEPARIN SODIUM INJ 5000 UNITS IVP ONE ×2 (03:29→21:08)
[2019-08-10] MEDS: HEPARIN SODIUM IN D5W 25,000 UNITS/500 ML BAG IV PRN ×2 (03:35→21:15)
[2019-08-10] MEDS ORDERED: HEPARIN SODIUM INJ 5000 UNITS ONE ×2 (03:40→21:10)
[2019-08-10] MEDS: NS 1000 ML 1,000 ML IV SCH ×2 (03:55→16:41)
[2019-08-10 06:11] LABS: BASOPHILS % (AUTO) 0.6 % (0.2-1.0); EOSINOPHILS # (AUTO) 0.2 x10^3/uL (0.0-0.2); EOSINOPHILS % (AUTO) 3.6 % (0.9-2.9); HEMATOCRIT 38.7 % (42.0-54.0); HEMOGLOBIN 12.3 g/dL (13.5-18.0); LYMPHOCYTES # (AUTO) 1.6 X10^3/uL (1.3-2.9); LYMPHOCYTES % (AUTO) 33.3 % (21.0-51.0); MEAN CORPUSCULAR HEMOGLOBIN 26.5 pg (27.0-34.0); MEAN CORPUSCULAR HGB CONC 31.9 g/dL (33.0-35.0); MEAN CORPUSCULAR VOLUME 83.1 fL (80.0-100.0); MEAN PLATELET VOLUME 7.7 fL (7.4-11.0); MONOCYTES # (AUTO) 0.4 x10^3/uL (0.3-0.8); NEUTROPHILS # (AUTO) 2.6 x10^3/uL (2.2-4.8); NEUTROPHILS % (AUTO) 53.5 % (42.0-75.0); PLATELET COUNT 263 X10^3/uL (150.0-450.0); RED BLOOD COUNT 4.65 X10^6/uL (4.7-6.0); RED CELL DISTRIBUTION WIDTH 15.7 % (11.6-16.5); WHITE BLOOD COUNT 4.9 X10^3/uL (3.6-10.0)
[2019-08-10 06:37] LABS: ALANINE AMINOTRANSFERASE 33 Units/L (12-78); ALKALINE PHOSPHATASE 84 Units/L (46-116); ASPARTATE AMINO TRANSFERASE 23 Units/L (15-37); BLOOD UREA NITROGEN 10 mg/dL (7-18); CALCIUM 8.7 mg/dL (8.5-10.1); CARBON DIOXIDE 32.1 mmol/L (21-32); CHLORIDE 102 mmol/L (98-107); COR CA(FOR HYPOALB) 9.5 mg/dL (8.5-10.1); COR NA(FOR HYPERGLY) 139 mmol/L (136-145); CREATININE 1.33 mg/dL (0.70-1.30); SODIUM 138 mmol/L (136-145); TOTAL PROTEIN 6.9 g/dL (6.4-8.2); eGFR NON BLACK RACES 59 (>60)
[2019-08-10] MEDS: PEPCID 20 MG IV PREMIX* 20 MG/50 ML BAG IV SCH ×2 (08:03→20:30)
[2019-08-11] MEDS: NS 1000 ML 1,000 ML IV SCH ×2 (05:23→20:10)
[2019-08-11 09:25] LABS: EOSINOPHILS # (AUTO) 0.2 x10^3/uL (0.0-0.2); EOSINOPHILS % (AUTO) 4.3 % (0.9-2.9); HEMATOCRIT 36.9 % (42.0-54.0); LYMPHOCYTES # (AUTO) 1.3 X10^3/uL (1.3-2.9); LYMPHOCYTES % (AUTO) 28.1 % (21.0-51.0); MEAN CORPUSCULAR HEMOGLOBIN 27.1 pg (27.0-34.0); MEAN CORPUSCULAR HGB CONC 32.5 g/dL (33.0-35.0); MEAN CORPUSCULAR VOLUME 83.4 fL (80.0-100.0); MEAN PLATELET VOLUME 8.5 fL (7.4-11.0); MONOCYTES # (AUTO) 0.4 x10^3/uL (0.3-0.8); MONOCYTES % (AUTO) 7.4 % (0.0-13.0); NEUTROPHILS # (AUTO) 2.8 x10^3/uL (2.2-4.8); NEUTROPHILS % (AUTO) 59.2 % (42.0-75.0); PLATELET COUNT 252 X10^3/uL (150.0-450.0); RED BLOOD COUNT 4.43 X10^6/uL (4.7-6.0); RED CELL DISTRIBUTION WIDTH 15.8 % (11.6-16.5); WHITE BLOOD COUNT 4.8 X10^3/uL (3.6-10.0)
[2019-08-11 09:29] LABS: ALANINE AMINOTRANSFERASE 29 Units/L (12-78); ALBUMIN 2.8 g/dL (3.4-5.0); ALKALINE PHOSPHATASE 80 Units/L (46-116); ASPARTATE AMINO TRANSFERASE 18 Units/L (15-37); BLOOD UREA NITROGEN 7 mg/dL (7-18); CALCIUM 8.7 mg/dL (8.5-10.1); CARBON DIOXIDE 34.7 mmol/L (21-32); CHLORIDE 102 mmol/L (98-107); COR CA(FOR HYPOALB) 9.7 mg/dL (8.5-10.1); COR NA(FOR HYPERGLY) 142 mmol/L (136-145); CREATININE 1.22 mg/dL (0.70-1.30); SODIUM 141 mmol/L (136-145); TOTAL PROTEIN 6.6 g/dL (6.4-8.2); eGFR NON BLACK RACES > 60 (>60)
[2019-08-11] MEDS: PEPCID 20 MG IV PREMIX* 20 MG/50 ML BAG IV SCH ×2 (09:30→20:10)
[2019-08-11] MEDS ORDERED: ELIQUIS ONE (11:03)
[2019-08-11] MEDS ORDERED: CARDIZEM CD 180 MG 24-HR PO ONE (11:04)
[2019-08-11] MEDS: ELIQUIS PO SCH ×2 (11:09→20:10)
[2019-08-11] MEDS: CARDIZEM CD 180 MG 24-HR PO SCH (11:09)
[2019-08-11] MEDS: COLACE CAP 100 MG PO SCH ×2 (13:33→20:10)
[2019-08-11] MEDS: MILK OF MAGNESIA PO SCH ×2 (13:33→20:10)
[2019-08-12] MEDS: NORCO 5/325 MG TAB PO PRN (01:30)
[2019-08-12] MEDS: NS 1000 ML 1,000 ML IV SCH ×2 (05:54→09:20)
[2019-08-12 06:05] LABS: ALANINE AMINOTRANSFERASE 33 Units/L (12-78); ALBUMIN 2.9 g/dL (3.4-5.0); ALKALINE PHOSPHATASE 86 Units/L (46-116); ASPARTATE AMINO TRANSFERASE 23 Units/L (15-37); BLOOD UREA NITROGEN 7 mg/dL (7-18); CALCIUM 8.6 mg/dL (8.5-10.1); CARBON DIOXIDE 32.5 mmol/L (21-32); CHLORIDE 103 mmol/L (98-107); COR CA(FOR HYPOALB) 9.5 mg/dL (8.5-10.1); COR NA(FOR HYPERGLY) 141 mmol/L (136-145); CREATININE 1.13 mg/dL (0.70-1.30); SODIUM 140 mmol/L (136-145); TOTAL PROTEIN 6.9 g/dL (6.4-8.2); eGFR NON BLACK RACES > 60 (>60)
[2019-08-12 06:07] LABS: BASOPHILS % (AUTO) 0.5 % (0.2-1.0); EOSINOPHILS # (AUTO) 0.2 x10^3/uL (0.0-0.2); HEMATOCRIT 36.6 % (42.0-54.0); HEMOGLOBIN 11.6 g/dL (13.5-18.0); LYMPHOCYTES # (AUTO) 1.3 X10^3/uL (1.3-2.9); LYMPHOCYTES % (AUTO) 27.6 % (21.0-51.0); MEAN CORPUSCULAR HEMOGLOBIN 26.7 pg (27.0-34.0); MEAN CORPUSCULAR HGB CONC 31.8 g/dL (33.0-35.0); MEAN CORPUSCULAR VOLUME 83.9 fL (80.0-100.0); MEAN PLATELET VOLUME 7.7 fL (7.4-11.0); MONOCYTES # (AUTO) 0.4 x10^3/uL (0.3-0.8); MONOCYTES % (AUTO) 8.4 % (0.0-13.0); NEUTROPHILS # (AUTO) 2.8 x10^3/uL (2.2-4.8); NEUTROPHILS % (AUTO) 59.5 % (42.0-75.0); PLATELET COUNT 249 X10^3/uL (150.0-450.0); RED BLOOD COUNT 4.36 X10^6/uL (4.7-6.0); WHITE BLOOD COUNT 4.8 X10^3/uL (3.6-10.0)
[2019-08-12] MEDS: MILK OF MAGNESIA PO SCH ×2 (09:10→20:46)
[2019-08-12] MEDS: ELIQUIS PO SCH (09:11)
[2019-08-12] MEDS: CARDIZEM CD 180 MG 24-HR PO SCH (09:11)
[2019-08-12] MEDS: COLACE CAP 100 MG PO SCH ×2 (09:20→20:44)
[2019-08-12] MEDS: PEPCID 20 MG IV PREMIX* 20 MG/50 ML BAG IV SCH ×2 (09:20→20:46)
[2019-08-12 11:25] LABS: ANTI-NUCLEAR ANTIBODY TEST None Detected (None Detected)
--- NOTE | 2019-08-12 13:11 | PCM.PROG ---
Progress Note - Progress Note for Day of Date of Exam: 08/11/19 - Subjective Subjective: IS BEING TREATED FOR ACUTE PULMONARY EMBOLI, ATRIAL FIBRILLATION, SYNCOPE, HYPERGLYCEMIA, CHRONIC KIDNEY DISEASE, AND HYPERTENSION. HE REMAINS ON A HEPARIN DRIP TODAY. CARDIZEM DRIP HAS BEEN TURNED OFF. HE CONTINUES WITH WEAKNESS AND SHORTNESS OF BREATH TODAY, BUT REPORTS SLIGHT IMP ROVEMENT IN SYMPTOMS SINCE YESTERDAY. ON EXAMINATION, HEART IS REGULAR IN RATE AND RHYTHM. BILATERAL LUNG ARE NOTED WITH DIMINISHED LUNG SOUNDS THROUGHOUT. ABDOMEN IS ROUND, SOFT, AND NON-TENDER WITH NORMAL BOWEL SOUNDS NOTED IN ALL QUADRANTS. HIS VITALS THIS MORNING ARE: 98.4-83-20-95%-127/57. LABS WERE OBTAINED. ABNORMAL LAB VALUES INCLUDE THE FOLLOWING: RBC 4.43, HGB 12.0, HCT 36.9, CARBON DIOXIDE 34.7, GLJUCOSE 153. AN ECHO WAS OBTAINED YESTERDAY AND REVEALED AN EJECTION FRACTION OF 59%, MODERATE CONCENTRIC HYPERTROPHY OF THE LEFT VENTRICLE. HYPERCOAGULATION PANEL IS PENDING. HE IS CURRENTLY RECEIVING HEPARIN IV, HUMULIN R SLIDING SCALE, NORCO 5/325MG PO Q4H PRN, AND PEPCID 20MG IV Q12H. WE WILL DISCONTINUE THE HEPARIN AND CARDIZEM TODAY. WE WILL START ELIQUIS 5MG PO BID AND CARDIZEM CD 180MG PO DAILY. WE WILL SET HIM UP FOR A SLEEP STUDY AFTER DISCHARGE. OTHERWISE, WE PLAN TO FOLLOW UP WITH AM LABS AND CONTINUE TO MONITOR. - Past Medical Family Social History Past Med/Fam/Surg Hx: No changes since H&P Allergies: Allergies No Known Drug Allergies Allergy (Verified 08/08/19 19:09) - Review of Systems ROS: No change since H&P - Vital Signs and I&O's Vital Signs: Temperature 99 F Pulse Rate [Left Brachial] 87 Pulse Rate [Apical] 78 Pulse Rate 98 Respiratory Rate 20 Blood Pressure [Right Arm] 161/67 Blood Pressure [Left Arm] 172/79 Blood Pressure 192/102 O2 Sat by Pulse Oximetry 97 Intake and Output: Intake & Output 08/10/19 08/11/19 08/12/19 08/13/19 11:59 11:59 11:59 11:59 Intake Total 2489 / 2489 4365 / 4365 4522 / 4522 Output Total 1800 / 1800 3750 / 3750 2700 / 2700 Balance 689 / 689 615 / 615 1822 / 1822 - Physical Exam Oriented: Normal Eyes: Normal Ear: Normal Nose: Normal Throat: Normal Respiratory: Generalized, Diminished Cardiovascular: Normal. negative: S3, S4, Murmur : Normal Auscultation: Bowel Sounds: Normal Tenderness: Normal Skin: Normal Musculoskeletal: Normal Psychiatric: Normal Mood Description: Calm Affect: Normal Speech Pattern: Clear, Appropriate - Laboratory and Diagnostics Result Diagrams: 08/12/19 05:15 08/12/19 05:15 Labs: Laboratory WBC 4.8 X10^3/uL (3.6-10.0) 08/12/19 05:15 RBC 4.36 X10^6/uL (4.7-6.0) L 08/12/19 05:15 Hgb 11.6 g/dL (13.5-18.0) L 08/12/19 05:15 Hct 36.6 % (42.0-54.0) L 08/12/19 05:15 MCV 83.9 fL (80.0-100.0) 08/12/19 05:15 MCH 26.7 pg (27.0-34.0) L 08/12/19 05:15 MCHC 31.8 g/dL (33.0-35.0) L 08/12/19 05:15 RDW 16.0 % (11.6-16.5) 08/12/19 05:15 Plt Count 249 X10^3/uL (150.0-450.0) 08/12/19 05:15 MPV 7.7 fL (7.4-11.0) 08/12/19 05:15 Neut % (Auto) 59.5 % (42.0-75.0) 08/12/19 05:15 Lymph % (Auto) 27.6 % (21.0-51.0) 08/12/19 05:15 [place] % (Auto) 8.4 % (0.0-13.0) 08/12/19 05:15 Eos % (Auto) 4.0 % (0.9-2.9) H 08/12/19 05:15 Baso % (Auto) 0.5 % (0.2-1.0) 08/12/19 05:15 Neut # (Auto) 2.8 x10^3/uL (2.2-4.8) 08/12/19 05:15 Lymph # (Auto) 1.3 X10^3/uL (1.3-2.9) 08/12/19 05:15 [place] # (Auto) 0.4 x10^3/uL (0.3-0.8) 08/12/19 05:15 Eos # (Auto) 0.2 x10^3/uL (0.0-0.2) 08/12/19 05:15 Baso # (Auto) 0.0 X10^3/uL (0.0-0.1) 08/12/19 05:15 Absolute Nucleated RBC 0.1 /100WBC 08/12/19 05:15 ESR 36 MM/HOUR (0-15) H 08/09/19 11:30 PT 13.4 SECONDS (11.8-14.3) 08/12/19 05:15 INR Target Range - 08/12/19 05:15 INR 1.05 (0.8-1.3) 08/12/19 05:15 APTT 36.7 SECONDS (22.9-36.5) H 08/12/19 05:15 PTT Comment - 08/12/19 05:15 D-Dimer 1680 ng/mL (0-400) H* 08/08/19 20:41 Sodium 140 mmol/L (136-145) 08/12/19 05:15 Corrected Sodium 141 mmol/L (136-145) 08/12/19 05:15 Potassium 3.7 mmol/L (3.5-5.1) 08/12/19 05:15 Chloride 103 mmol/L (98-107) 08/12/19 05:15 Carbon Dioxide 32.5 mmol/L (21-32) H 08/12/19 05:15 BUN 7 mg/dL (7-18) 08/12/19 05:15 Creatinine 1.13 mg/dL (0.70-1.30) 08/12/19 05:15 Est GFR (MDRD) Af Amer > 60 (>60) 08/12/19 05:15 Est GFR (MDRD) Non-Af > 60 (>60) 08/12/19 05:15 Glucose 134 mg/dL (65-99) H 08/12/19 05:15 Calcium 8.6 mg/dL (8.5-10.1) 08/12/19 05:15 Corrected Calcium 9.5 mg/dL (8.5-10.1) 08/12/19 05:15 Magnesium 2.2 mg/dL (1.7-2.9) 08/08/19 20:41 Ferritin 228 ng/mL (26-388) 08/10/19 05:26 Total Bilirubin 0.30 mg/dL (0.2-1.0) 08/12/19 05:15 AST 23 Units/L (15-37) 08/12/19 05:15 ALT 33 Units/L (12-78) 08/12/19 05:15 Alkaline Phosphatase 86 Units/L (46-116) 08/12/19 05:15 Lactate Dehydrogenase 236 Units/L (85-227) H 08/09/19 07:12 Creatine Kinase 267 Units/L (39-308) 08/08/19 20:41 CK-MB (CK-2) < 1.0 ng/mL (0-4.0) 08/08/19 20:41 CK/CKMB % Calc 0.4 % (<4) 08/08/19 20:41 Troponin I < 0.02 ng/mL (0-1.5) 08/08/19 20:41 C-Reactive Protein 29.10 mg/L (0-3.0) H 08/10/19 05:26 Total Protein 6.9 g/dL (6.4-8.2) 08/12/19 05:15 Albumin 2.9 g/dL (3.4-5.0) L 08/12/19 05:15 Globulin 4.0 g/dL (2.5-4.5) 08/12/19 05:15 Albumin/Globulin Ratio 0.7 Ratio (1.1-2.1) L 08/12/19 05:15 Homocysteine 8 umol/L (<=10) 08/09/19 11:30 Specimen Type Clean catch urine 08/08/19 20:10 Urine Color Yellow (YELLOW) 08/08/19 20:10 Urine Appearance Clear (CLEAR) 08/08/19 20:10 Urine pH 6.0 (5.0 - 8.0) 08/08/19 20:10 Ur Specific [place] 1.025 (1.000-1.030) 08/08/19 20:10 Urine Protein 1+ (NEGATIVE) 08/08/19 20:10 Urine Glucose (UA) Negative (NEGATIVE) 08/08/19 20:10 Urine Ketones Negative (NEGATIVE) 08/08/19 20:10 Urine Occult Blood Negative (NEGATIVE) 08/08/19 20:10 Urine Nitrite Negative (NEGATIVE) 08/08/19 20:10 Urine Bilirubin Negative (NEGATIVE) 08/08/19 20:10 Urine Urobilinogen Normal (NORMAL) 08/08/19 20:10 Ur Leukocyte Esterase Negative (NEGATIVE) 08/08/19 20:10 Urine RBC None seen /HPF (0-3) 08/08/19 20:10 Urine WBC None seen /HPF (0-5) 08/08/19 20:10 Ur Squamous Epith Cells Rare /HPF (NEGATIVE) 08/08/19 20:10 Calcium Oxalate Crystal Moderate /HPF (NEGATIVE) 08/08/19 20:10 Urine Bacteria Negative /HPF (NEGATIVE) 08/08/19 20:10 Urine Mucus Few /HPF (NEGATIVE) 08/08/19 20:10 Ur Culture Indicated? No/not indicated 08/08/19 20:10 Urine Opiates Screen Negative (NEG=<300) 08/08/19 20:10 Urine Methadone Screen Negative (NEG=<300) 08/08/19 20:10 Ur Barbiturates Screen Negative (NEG=<200) 08/08/19 20:10 Ur Phencyclidine Scrn Negative (NEG=<25) 08/08/19 20:10 Ur Amphetamines Screen Negative (NEG=<1000) 08/08/19 20:10 U Benzodiazepines Scrn Negative (NEG=<200) 08/08/19 20:10 Urine Cocaine Screen Negative (NEG=<300) 08/08/19 20:10 U Marijuana (THC) Screen Negative (NEG=<50) 08/08/19 20:10 [facility] Screen None detected (None Detected) 08/09/19 11:30 [facility] Titer TNP 08/09/19 11:30 [facility] Pattern TNP 08/09/19 11:30 SARS-CoV-2 (PCR) Negative (NEGATIVE) 08/10/19 09:20 - Plan (1) Acute pulmonary embolism Status: Acute Qualifiers: Pulmonary embolism type: unspecified Acute cor pulmonale presence: unspecified Qualified Code(s): I26.99 - Other pulmonary embolism without acute cor pulmonale Plan: ELIQUIS 5MG PO BID, HUMULIN R SLIDING SCALE, NORCO 5/325MG PO Q4H PRN, AND PEPCID 20MG IV Q12H, HYPERCOAG PANEL, ECHO, CONTINUE TO MONITOR (2) Atrial fibrillation Status: Acute Qualifiers: Atrial fibrillation type: unspecified Qualified Code(s): I48.91 - Unspe cified atrial fibrillation Plan: CARDIZEM DC 180MG PO DAILY, CONTINUE TO MONITOR (3) Syncope Status: Acute Qualifiers: Encounter type: initial encounter (4) Hyperglycemia Status: Acute (5) Chronic kidney disease (CKD) Status: Chronic Qualifiers: Chronic kidney disease stage: stage 3 (moderate) Qualified Code(s): N18.3 - Chronic kidney disease, stage 3 (moderate) (6) Hypertension Status: Chronic Qualifiers: Hypertension type: essential hypertension Qualified Code(s): I10 - Essential (primary) hypertension
[2019-08-12] MEDS ORDERED: HEPARIN SODIUM IN D5W 25,000 UNITS/500 ML BAG IV ONE (18:59)
[2019-08-12] MEDS ORDERED: HEPARIN SODIUM INJ 5000 UNITS IVP ONE (21:00)
[2019-08-12] MEDS: COUMADIN TAB 5 MG PO SCH (21:05)
[2019-08-12] MEDS: HEPARIN SODIUM IN D5W 25,000 UNITS/500 ML BAG IV PRN (22:00)
--- NOTE | 2019-08-12 22:22 | PCM.PROG ---
Progress Note - Progress Note for Day of Date of Exam: 08/12/19 - Subjective Subjective: IS BEING TREATED FOR ACUTE PULMONARY EMBOLI, ATRIAL FIBRILLATION, SYNCOPE, HYPERGLYCEMIA, CHRONIC KIDNEY DISEASE, AND HYPERTENSION. HE CONTINUES WITH MILD SHORTNESS OF BREATH TODAY, BUT CONTINUES TO REPORT IMPROVEMENT. ON EXAMINATION, HEART IS REGULAR IN RATE AND RHYTHM. BILATERAL LUNG ARE NOTED WITH DIMINISHED LUNG SOUNDS THROUGHOUT. ABDOMEN IS ROUND, SOFT, AND NON-TENDER WITH NORMAL BOWEL SOUNDS NOTED IN ALL QUADRANTS. HIS VITALS THIS MORNING ARE: 98.2-104-20-99%-179/82. LABS WERE OBTAINED. ABNORMAL LAB VALUES INCLUDE THE FOLLOWING: RBC 4.36, HGB 11.6, HCT 36.6, CARBON DIOXIDE 32.5, GLUCOSE 134. HYPERCOAGULATION PANEL IS PENDING. HE IS CURRENTLY RECEIVING CARDIZEM CD 180MG PO DAILY, ELIQUIS 5MG PO BID, HUMULIN R SLIDING SCALE, NORCO 5/325MG PO Q4H PRN, AND PEPCID 20MG IV Q12H. WE WILL DISCONTINUE THE HEPARIN AND CARDIZEM TODAY. WE HAVE DECIDED TO PLACE PATIENT ON COUMADIN RATHER THAN ELIQUIS. WE WILL DISCONTINUE THE ELIQUIS AND START COUMADIN 5MG PO HS. UNTIL HE IS THERAPEUTIC, WE WILL RESUME THE HEPARIN DRIP. WE WILL SET HIM UP FOR A SLEEP STUDY AFTER DISCHARGE. OTHERWISE, WE PLAN TO FOLLOW UP WITH AM LABS AND CONTINUE TO MONITOR. - Past Medical Family Social History Past Med/Fam/Surg Hx: No changes since H&P Allergies: Allergies No Known Drug Allergies Allergy (Verified 08/08/19 19:09) - Review of Systems ROS: No change since H&P - Vital Signs and I&O's Vital Signs: Temperature 97.9 F Pulse Rate [Left Brachial] 83 Pulse Rate [Apical] 78 Pulse Rate 98 Respiratory Rate 20 Blood Pressure [Right Arm] 161/67 Blood Pressure [Left Arm] 159/75 Blood Pressure 192/102 O2 Sat by Pulse Oximetry 94 Intake and Output: Intake & Output 08/10/19 08/11/19 08/12/19 08/13/19 11:59 11:59 11:59 11:59 Intake Total 2489 / 2489 4365 / 4365 4522 / 4522 0 / 0 Output Total 1800 / 1800 3750 / 3750 2700 / 2700 Balance 689 / 689 615 / 615 1822 / 1822 2089 / 2089 - Physical Exam Oriented: Normal Eyes: Normal Ear: Normal Nose: Normal Throat: Normal Respiratory: Generalized, Diminished Cardiovascular: Normal. negative: S3, S4, Murmur : Normal Auscultation: Bowel Sounds: Normal Palpation: Normal Tenderness: Normal Skin: Normal Musculoskeletal: Normal Psychiatric: Normal Mood Description: Calm Affect: Normal Speech Pattern: Clear, Appropriate - Laboratory and Diagnostics Result Diagrams: 08/12/19 05:15 08/12/19 05:15 Labs: Laboratory WBC 4.8 X10^3/uL (3.6-10.0) 08/12/19 05:15 RBC 4.36 X10^6/uL (4.7-6.0) L 08/12/19 05:15 Hgb 11.6 g/dL (13.5-18.0) L 08/12/19 05:15 Hct 36.6 % (42.0-54.0) L 08/12/19 05:15 MCV 83.9 fL (80.0-100.0) 08/12/19 05:15 MCH 26.7 pg (27.0-34.0) L 08/12/19 05:15 MCHC 31.8 g/dL (33.0-35.0) L 08/12/19 05:15 RDW 16.0 % (11.6-16.5) 08/12/19 05:15 Plt Count 249 X10^3/uL (150.0-450.0) 08/12/19 05:15 MPV 7.7 fL (7.4-11.0) 08/12/19 05:15 Neut % (Auto) 59.5 % (42.0-75.0) 08/12/19 05:15 Lymph % (Auto) 27.6 % (21.0-51.0) 08/12/19 05:15 [place] % (Auto) 8.4 % (0.0-13.0) 08/12/19 05:15 Eos % (Auto) 4.0 % (0.9-2.9) H 08/12/19 05:15 Baso % (Auto) 0.5 % (0.2-1.0) 08/12/19 05:15 Neut # (Auto) 2.8 x10^3/uL (2.2-4.8) 08/12/19 05:15 Lymph # (Auto) 1.3 X10^3/uL (1.3-2.9) 08/12/19 05:15 [place] # (Auto) 0.4 x10^3/uL (0.3-0.8) 08/12/19 05:15 Eos # (Auto) 0.2 x10^3/uL (0.0-0.2) 08/12/19 05:15 Baso # (Auto) 0.0 X10^3/uL (0.0-0.1) 08/12/19 05:15 Absolute Nucleated RBC 0.1 /100WBC 08/12/19 05:15 ESR 36 MM/HOUR (0-15) H 08/09/19 11:30 PT 13.4 SECONDS (11.8-14.3) 08/12/19 05:15 INR Target Range - 08/12/19 05:15 INR 1.05 (0.8-1.3) 08/12/19 05:15 APTT 35.8 SECONDS (22.9-36.5) 08/12/19 19:02 PTT Comment - 08/12/19 19:02 D-Dimer 1680 ng/mL (0-400) H* 08/08/19 20:41 Sodium 140 mmol/L (136-145) 08/12/19 05:15 Corrected Sodium 141 mmol/L (136-145) 08/12/19 05:15 Potassium 3.7 mmol/L (3.5-5.1) 08/12/19 05:15 Chloride 103 mmol/L (98-107) 08/12/19 05:15 Carbon Dioxide 32.5 mmol/L (21-32) H 08/12/19 05:15 BUN 7 mg/dL (7-18) 08/12/19 05:15 Creatinine 1.13 mg/dL (0.70-1.30) 08/12/19 05:15 Est GFR (MDRD) Af Amer > 60 (>60) 08/12/19 05:15 Est GFR (MDRD) Non-Af > 60 (>60) 08/12/19 05:15 Glucose 134 mg/dL (65-99) H 08/12/19 05:15 Calcium 8.6 mg/dL (8.5-10.1) 08/12/19 05:15 Corrected Calcium 9.5 mg/dL (8.5-10.1) 08/12/19 05:15 Magnesium 2.2 mg/dL (1.7-2.9) 08/08/19 20:41 Ferritin 228 ng/mL (26-388) 08/10/19 05:26 Total Bilirubin 0.30 mg/dL (0.2-1.0) 08/12/19 05:15 AST 23 Units/L (15-37) 08/12/19 05:15 ALT 33 Units/L (12-78) 08/12/19 05:15 Alkaline Phosphatase 86 Units/L (46-116) 08/12/19 05:15 Lactate Dehydrogenase 236 Units/L (85-227) H 08/09/19 07:12 Creatine Kinase 267 Units/L (39-308) 08/08/19 20:41 CK-MB (CK-2) < 1.0 ng/mL (0-4.0) 08/08/19 20:41 CK/CKMB % Calc 0.4 % (<4) 08/08/19 20:41 Troponin I < 0.02 ng/mL (0-1.5) 08/08/19 20:41 C-Reactive Protein 29.10 mg/L (0-3.0) H 08/10/19 05:26 Total Protein 6.9 g/dL (6.4-8.2) 08/12/19 05:15 Albumin 2.9 g/dL (3.4-5.0) L 08/12/19 05:15 Globulin 4.0 g/dL (2.5-4.5) 08/12/19 05:15 Albumin/Globulin Ratio 0.7 Ratio (1.1-2.1) L 08/12/19 05:15 Homocysteine 8 umol/L (<=10) 08/09/19 11:30 Specimen Type Clean catch urine 08/08/19 20:10 Urine Color Yellow (YELLOW) 08/08/19 20:10 Urine Appearance Clear (CLEAR) 08/08/19 20:10 Urine pH 6.0 (5.0 - 8.0) 08/08/19 20:10 Ur Specific [place] 1.025 (1.000-1.030) 08/08/19 20:10 Urine Protein 1+ (NEGATIVE) 08/08/19 20:10 Urine Glucose (UA) Negative (NEGATIVE) 08/08/19 20:10 Urine Ketones Negative (NEGATIVE) 08/08/19 20:10 Urine Occult Blood Negative (NEGATIVE) 08/08/19 20:10 Urine Nitrite Negative (NEGATIVE) 08/08/19 20:10 Urine Bilirubin Negative (NEGATIVE) 08/08/19 20:10 Urine Urobilinogen Normal (NORMAL) 08/08/19 20:10 Ur Leukocyte Esterase Negative (NEGATIVE) 08/08/19 20:10 Urine RBC None seen /HPF (0-3) 08/08/19 20:10 Urine WBC None seen /HPF (0-5) 08/08/19 20:10 Ur Squamous Epith Cells Rare /HPF (NEGATIVE) 08/08/19 20:10 Calcium Oxalate Crystal Moderate /HPF (NEGATIVE) 08/08/19 20:10 Urine Bacteria Negative /HPF (NEGATIVE) 08/08/19 20:10 Urine Mucus Few /HPF (NEGATIVE) 08/08/19 20:10 Ur Culture Indicated? No/not indicated 08/08/19 20:10 Urine Opiates Screen Negative (NEG=<300) 08/08/19 20:10 Urine Methadone Screen Negative (NEG=<300) 08/08/19 20:10 Ur Barbiturates Screen Negative (NEG=<200) 08/08/19 20:10 Ur Phencyclidine Scrn Negative (NEG=<25) 08/08/19 20:10 Ur Amphetamines Screen Negative (NEG=<1000) 08/08/19 20:10 U Benzodiazepines Scrn Negative (NEG=<200) 08/08/19 20:10 Urine Cocaine Screen Negative (NEG=<300) 08/08/19 20:10 U Marijuana (THC) Screen Negative (NEG=<50) 08/08/19 20:10 [facility] Screen None detected (None Detected) 08/09/19 11:30 [facility] Titer TNP 08/09/19 11:30 [facility] Pattern TNP 08/09/19 11:30 SARS-CoV-2 (PCR) Negative (NEGATIVE) 08/10/19 09:20 - Plan (1) Acute pulmonary embolism Status: Acute Qualifiers: Pulmonary embolism type: unspecified Acute cor pulmonale presence: unspecified Qualified Code(s): I26.99 - Other pulmonary embolism without acute cor pulmonale Plan: HEPARIN DRIP, COUMADIN 5MG PO HS, HUMULIN R SLIDING SCALE, NORCO 5/325MG PO Q4H PRN, AND PEPCID 20MG IV Q12H, HYPERCOAG PANEL, ECHO, CONTINUE TO MONITOR (2) Atrial fibrillation Status: Acute Qualifiers: Atrial fibrillation type: unspecified Qualified Code(s): I48.91 - Unspecified atrial fibrillation Plan: CARDIZEM DC 180MG PO DAILY, CONTINUE TO MONITOR (3) Syncope Status: Acute Qualifiers: Encounter type: initial encounter (4) Hyperglycemia Status: Acute (5) Chronic kidney disease (CKD) Status: Chronic Qualifiers: Chronic kidney disease stage: stage 3 (moderate) Qualified Code(s): N18.3 - Chronic kidney disease, stage 3 (moderate) (6) Hypertension Status: Chronic Qualifiers: Hypertension type: essential hypertension Qualified Code(s): I10 - Essential (primary) hypertension
[2019-08-13] MEDS: NS 1000 ML 1,000 ML IV SCH ×2 (02:07→18:58)
[2019-08-13 05:14] LABS: BASOPHILS % (AUTO) 0.6 % (0.2-1.0); EOSINOPHILS # (AUTO) 0.2 x10^3/uL (0.0-0.2); EOSINOPHILS % (AUTO) 4.1 % (0.9-2.9); HEMATOCRIT 38.4 % (42.0-54.0); HEMOGLOBIN 12.2 g/dL (13.5-18.0); LYMPHOCYTES # (AUTO) 1.7 X10^3/uL (1.3-2.9); LYMPHOCYTES % (AUTO) 32.4 % (21.0-51.0); MEAN CORPUSCULAR HEMOGLOBIN 26.5 pg (27.0-34.0); MEAN CORPUSCULAR HGB CONC 31.7 g/dL (33.0-35.0); MEAN CORPUSCULAR VOLUME 83.6 fL (80.0-100.0); MEAN PLATELET VOLUME 8.7 fL (7.4-11.0); MONOCYTES # (AUTO) 0.4 x10^3/uL (0.3-0.8); MONOCYTES % (AUTO) 7.6 % (0.0-13.0); NEUTROPHILS # (AUTO) 2.9 x10^3/uL (2.2-4.8); NEUTROPHILS % (AUTO) 55.3 % (42.0-75.0); PLATELET COUNT 289 X10^3/uL (150.0-450.0); RED BLOOD COUNT 4.59 X10^6/uL (4.7-6.0); RED CELL DISTRIBUTION WIDTH 15.6 % (11.6-16.5); WHITE BLOOD COUNT 5.2 X10^3/uL (3.6-10.0)
[2019-08-13 05:34] LABS: ALANINE AMINOTRANSFERASE 48 Units/L (12-78); ALBUMIN 3.1 g/dL (3.4-5.0); ALKALINE PHOSPHATASE 88 Units/L (46-116); ASPARTATE AMINO TRANSFERASE 39 Units/L (15-37); BLOOD UREA NITROGEN 7 mg/dL (7-18); CALCIUM 8.7 mg/dL (8.5-10.1); CARBON DIOXIDE 30.7 mmol/L (21-32); CHLORIDE 102 mmol/L (98-107); COR CA(FOR HYPOALB) 9.4 mg/dL (8.5-10.1); COR NA(FOR HYPERGLY) 140 mmol/L (136-145); CREATININE 1.18 mg/dL (0.70-1.30); SODIUM 139 mmol/L (136-145); TOTAL PROTEIN 7.1 g/dL (6.4-8.2); eGFR NON BLACK RACES > 60 (>60)
[2019-08-13 06:32] LABS: PROTEIN C ACTIVITY 108 % (83-168)
[2019-08-13] MEDS ORDERED: POTASSIUM CHLORIDE LIQ 20 MEQ UDC PO PRN (07:18)
[2019-08-13] MEDS ORDERED: K-RIDER 10 MEQ/NS 100 ML 10 MEQ/100 ML BAG IV PRN (07:18)
[2019-08-13] MEDS ORDERED: MAGNESIUM SULFATE 1 GRAM/100 mL PREMIX 1 GM/100 ML BAG IV PRN (07:18)
[2019-08-13] MEDS ORDERED: POTASSIUM CHL 60 MEQ/NS 0.45% 500 ML IV PRN (07:18)
[2019-08-13] MEDS ORDERED: KLOR-CON PO PRN (07:18)
[2019-08-13] MEDS ORDERED: MICRO K EXTEN CAP 10 MEQ PO PRN (07:18)
[2019-08-13] MEDS ORDERED: POTASSIUM CHL 40 MEQ/NS 0.45% 500 ML IV PRN (07:18)
[2019-08-13] MEDS: MILK OF MAGNESIA PO SCH (08:48)
[2019-08-13] MEDS: CARDIZEM CD 180 MG 24-HR PO SCH (08:48)
[2019-08-13] MEDS: COLACE CAP 100 MG PO SCH ×2 (08:48→21:53)
[2019-08-13] MEDS: K-DUR TAB 20 MEQ PO PRN (08:48)
[2019-08-13] MEDS: PEPCID 20 MG IV PREMIX* 20 MG/50 ML BAG IV SCH ×2 (08:50→21:54)
[2019-08-13] MEDS ORDERED: HEPARIN SODIUM INJ 5000 UNITS IVP ONE (11:31)
[2019-08-13] MEDS ORDERED: HEPARIN SODIUM INJ 5000 UNITS ONE (11:45)
[2019-08-13] MEDS: HEPARIN SODIUM IN D5W 25,000 UNITS/500 ML BAG IV PRN (12:23)
[2019-08-13] MEDS: COUMADIN TAB 5 MG PO SCH (21:54)
--- NOTE | 2019-08-13 22:10 | PCM.PROG ---
Progress Note - Progress Note for Day of Date of Exam: 08/13/19 - Subjective Subjective: IS BEING TREATED FOR ACUTE PULMONARY EMBOLI, ATRIAL FIBRILLATION, SYNCOPE, HYPERGLYCEMIA, CHRONIC KIDNEY DISEASE, AND HYPERTENSION. HE CONTINUES WITH MILD SHORTNESS OF BREATH TODAY, BUT CONTINUES TO REPORT IMPROVEMENT. ON EXAMINATION, HEART IS REGULAR IN RATE AND RHYTHM. BILATERAL LUNG ARE NOTED WITH DIMINISHED LUNG SOUNDS THROUGHOUT. ABDOMEN IS ROUND, SOFT, AND NON-TENDER WITH NORMAL BOWEL SOUNDS NOTED IN ALL QUADRANTS. HIS VITALS THIS MORNING ARE: 97.9-92-20-99%-144/99. LABS WERE OBTAINED. ABNORMAL LAB VALUES INCLUDE THE FOLLOWING: RBC 4.59, HGB 12.2, HCT 38.4, GLUCOSE 144, AST 39. HYPERCOAGULATION PANEL IS WITHIN NORMAL LIMITS. HE IS CURRENTLY RECEIVING CARDIZEM CD 180MG PO DAILY, HE IS ON THE HEPARIN DRIP, COUMADIN 5MG PO HS, HUMULIN R SLIDING SCALE, NORCO 5/325MG PO Q4H PRN, AND PEPCID 20MG IV Q12H. HE WILL REMAIN ON THE HEPARIN UNTIL THE COUMADIN IS THERAPEUTIC. WE WILL SET HIM UP FOR A SLEEP STUDY AFTER DISCHARGE. OTHERWISE, WE PLAN TO FOLLOW UP WITH AM LABS AND CONTINUE TO MONITOR. - Past Medical Family Social History Past Med/Fam/Surg Hx: No changes since H&P Allergies: Allergies No Known Drug Allergies Allergy (Verified 08/08/19 19:09) - Review of Systems ROS: No change since H&P - Vital Signs and I&O's Vital Signs: Temperature 97.6 F Pulse Rate [Left Brachial] 90 Pulse Rate [Apical] 78 Pulse Rate 98 Respiratory Rate 20 Blood Pressure [Right Arm] 161/67 Blood Pressure [Left Arm] 167/79 Blood Pressure 192/102 O2 Sat by Pulse Oximetry 95 Intake and Output: Intake & Output 08/11/19 08/12/19 08/13/19 08/14/19 11:59 11:59 11:59 11:59 Intake Total 4365 / 4365 4522 / 4522 4729 / 4729 1780 / 1780 Output Total 3750 / 3750 2700 / 2700 Balance 615 / 615 1822 / 1822 4729 / 4729 1780 / 1780 - Physical Exam Oriented: Normal Eyes: Normal Ear: Normal Nose: Normal Throat: Normal Respiratory: Generalized, Diminished Cardiovascular: Normal. negative: S3, S4, Murmur : Normal Auscultation: Bowel Sounds: Normal Palpation: Normal Tenderness: Normal Skin: Normal Musculoskeletal: Normal Psychiatric: Normal Mood Description: Calm Affect: Normal Speech Pattern: Clear, Appropriate - Laboratory and Diagnostics Result Diagrams: 08/13/19 03:53 08/13/19 03:53 Labs: Laboratory WBC 5.2 X10^3/uL (3.6-10.0) 08/13/19 03:53 RBC 4.59 X10^6/uL (4.7-6.0) L 08/13/19 03:53 Hgb 12.2 g/dL (13.5-18.0) L 08/13/19 03:53 Hct 38.4 % (42.0-54.0) L 08/13/19 03:53 MCV 83.6 fL (80.0-100.0) 08/13/19 03:53 MCH 26.5 pg (27.0-34.0) L 08/13/19 03:53 MCHC 31.7 g/dL (33.0-35.0) L 08/13/19 03:53 RDW 15.6 % (11.6-16.5) 08/13/19 03:53 Plt Count 289 X10^3/uL (150.0-450.0) 08/13/19 03:53 MPV 8.7 fL (7.4-11.0) 08/13/19 03:53 Neut % (Auto) 55.3 % (42.0-75.0) 08/13/19 03:53 Lymph % (Auto) 32.4 % (21.0-51.0) 08/13/19 03:53 [place] % (Auto) 7.6 % (0.0-13.0) 08/13/19 03:53 Eos % (Auto) 4.1 % (0.9-2.9) H 08/13/19 03:53 Baso % (Auto) 0.6 % (0.2-1.0) 08/13/19 03:53 Neut # (Auto) 2.9 x10^3/uL (2.2-4.8) 08/13/19 03:53 Lymph # (Auto) 1.7 X10^3/uL (1.3-2.9) 08/13/19 03:53 [place] # (Auto) 0.4 x10^3/uL (0.3-0.8) 08/13/19 03:53 Eos # (Auto) 0.2 x10^3/uL (0.0-0.2) 08/13/19 03:53 Baso # (Auto) 0.0 X10^3/uL (0.0-0.1) 08/13/19 03:53 Absolute Nucleated RBC 0.2 /100WBC 08/13/19 03:53 ESR 36 MM/HOUR (0-15) H 08/09/19 11:30 PT 13.0 SECONDS (11.8-14.3) 08/13/19 03:53 INR Target Range - 08/13/19 03:53 INR 1.01 (0.8-1.3) 08/13/19 03:53 APTT 66.8 SECONDS (22.9-36.5) H 08/13/19 17:35 PTT Heparin Neutraliz TNP 08/09/19 11:30 PTT Comment - 08/13/19 17:35 Reptilase Time TNP 08/09/19 11:30 D-Dimer 1680 ng/mL (0-400) H* 08/08/19 20:41 Plt Neutralization TNP 08/09/19 11:30 LA PTT Screen 42 08/09/19 11:30 Lupus Anticoag PTT Mix TNP 08/09/19 11:30 LA Thrombin Time TNP 08/09/19 11:30 LA dRVVT Screen Ratio 36 08/09/19 11:30 dRVVT Confirm Interp TNP 08/09/19 11:30 dRVVT Mix Interpret TNP 08/09/19 11:30 Hexag Phospholip Neutrl TNP 08/09/19 11:30 Lupus Anticoag Interp See note 08/09/19 11:30 Prot C Funct Activity 108 % (83-168) 08/09/19 11:30 APC Resistance Ratio 3.99 (>=2.00) 08/09/19 11:30 Protein S Activity 114 % (66-143) 08/09/19 11:30 Antithrombin III Activ 100 % (76-128) 08/09/19 11:30 Sodium 139 mmol/L (136-145) 08/13/19 03:53 Corrected Sodium 140 mmol/L (136-145) 08/13/19 03:53 Potassium 3.7 mmol/L (3.5-5.1) 08/13/19 03:53 Chloride 102 mmol/L (98-107) 08/13/19 03:53 Carbon Dioxide 30.7 mmol/L (21-32) 08/13/19 03:53 BUN 7 mg/dL (7-18) 08/13/19 03:53 Creatinine 1.18 mg/dL (0.70-1.30) 08/13/19 03:53 Est GFR (MDRD) Af Amer > 60 (>60) 08/13/19 03:53 Est GFR (MDRD) Non-Af > 60 (>60) 08/13/19 03:53 Glucose 144 mg/dL (65-99) H 08/13/19 03:53 Calcium 8.7 mg/dL (8.5-10.1) 08/13/19 03:53 Corrected Calcium 9.4 mg/dL (8.5-10.1) 08/13/19 03:53 Magnesium 2.4 mg/dL (1.7-2.9) 08/13/19 03:53 Ferritin 228 ng/mL (26-388) 08/10/19 05:26 Total Bilirubin 0.40 mg/dL (0.2-1.0) 08/13/19 03:53 AST 39 Units/L (15-37) H 08/13/19 03:53 ALT 48 Units/L (12-78) 08/13/19 03:53 Alkaline Phosphatase 88 Units/L (46-116) 08/13/19 03:53 Lactate Dehydrogenase 236 Units/L (85-227) H 08/09/19 07:12 Creatine Kinase 267 Units/L (39-308) 08/08/19 20:41 CK-MB (CK-2) < 1.0 ng/mL (0-4.0) 08/08/19 20:41 CK/CKMB % Calc 0.4 % (<4) 08/08/19 20:41 Troponin I < 0.02 ng/mL (0-1.5) 08/08/19 20:41 C-Reactive Protein 29.10 mg/L (0-3.0) H 08/10/19 05:26 Total Protein 7.1 g/dL (6.4-8.2) 08/13/19 03:53 Albumin 3.1 g/dL (3.4-5.0) L 08/13/19 03:53 Globulin 4.0 g/dL (2.5-4.5) 08/13/19 03:53 Albumin/Globulin Ratio 0.8 Ratio (1.1-2.1) L 08/13/19 03:53 Homocysteine 8 umol/L (<=10) 08/09/19 11:30 Specimen Type Clean catch urine 08/08/19 20:10 Urine Color Yellow (YELLOW) 08/08/19 20:10 Urine Appearance Clear (CLEAR) 08/08/19 20:10 Urine pH 6.0 (5.0 - 8.0) 08/08/19 20:10 Ur Specific [place] 1.025 (1.000-1.030) 08/08/19 20:10 Urine Protein 1+ (NEGATIVE) 08/08/19 20:10 Urine Glucose (UA) Negative (NEGATIVE) 08/08/19 20:10 Urine Ketones Negative (NEGATIVE) 08/08/19 20:10 Urine Occult Blood Negative (NEGATIVE) 08/08/19 20:10 Urine Nitrite Negative (NEGATIVE) 08/08/19 20:10 Urine Bilirubin Negative (NEGATIVE) 08/08/19 20:10 Urine Urobilinogen Normal (NORMAL) 08/08/19 20:10 Ur Leukocyte Esterase Negative (NEGATIVE) 08/08/19 20:10 Urine RBC None seen /HPF (0-3) 08/08/19 20:10 Urine WBC None seen /HPF (0-5) 08/08/19 20:10 Ur Squamous Epith Cells Rare /HPF (NEGATIVE) 08/08/19 20:10 Calcium Oxalate Crystal Moderate /HPF (NEGATIVE) 08/08/19 20:10 Urine Bacteria Negative /HPF (NEGATIVE) 08/08/19 20:10 Urine Mucus Few /HPF (NEGATIVE) 08/08/19 20:10 Ur Culture Indicated? No/not indicated 08/08/19 20:10 Urine Opiates Screen Negative (NEG=<300) 08/08/19 20:10 Urine Methadone Screen Negative (NEG=<300) 08/08/19 20:10 Ur Barbiturates Screen Negative (NEG=<200) 08/08/19 20:10 Ur Phencyclidine Scrn Negative (NEG=<25) 08/08/19 20:10 Ur Amphetamines Screen Negative (NEG=<1000) 08/08/19 20:10 U Benzodiazepines Scrn Negative (NEG=<200) 08/08/19 20:10 Urine Cocaine Screen Negative (NEG=<300) 08/08/19 20:10 U Marijuana (THC) Screen Negative (NEG=<50) 08/08/19 20:10 [place] Screen None detected (None Detected) 08/09/19 11:30 [place] Titer TNP 08/09/19 11:30 [place] Pattern TNP 08/09/19 11:30 SARS-CoV-2 (PCR) Negative (NEGATIVE) 08/10/19 09:20 Prothromb Gene Review Not Reportable 08/09/19 11:30 Miscellaneous Test Covid 19 08/09/19 06:10 - Plan (1) Acute pulmonary embolism Status: Acute Qualifiers: Pulmonary embolism type: unspecified Acute cor pulmonale presence: unspecified Qualified Code(s): I26.99 - Other pulmonary embolism without acute cor pulmonale Plan: HEPARIN DRIP, COUMADIN 5MG PO HS, HUMULIN R SLIDING SCALE, NORCO 5/325MG PO Q4H PRN, AND PEPCID 20MG IV Q12H, HYPERCOAG PANEL, ECHO, CONTINUE TO MONITOR (2) Atrial fibrillation Status: Acute Qualifiers: Atrial fibrillation type: unspecified Qualified Code(s): I48.91 - Unspecified atrial fibrillation Plan: CARDIZEM DC 180MG PO DAILY, CONTINUE TO MONITOR (3) Syncope Status: Acute Qualifiers: Encounter type: initial encounter (4) Hyperglycemia Status: Acute (5) Chronic kidney disease (CKD) Status: Chronic Qualifiers: Chronic kidney disease stage: stage 3 (moderate) Qualified Code(s): N18.3 - Chronic kidney disease, stage 3 (moderate) (6) Hypertension Status: Chronic Qualifiers: Hypertension type: essential hypertension Qualified Code(s): I10 - Essential (primary) hypertension
[2019-08-14] MEDS: HEPARIN SODIUM IN D5W 25,000 UNITS/500 ML BAG IV PRN ×2 (00:05→15:18)
[2019-08-14] MEDS: NS 1000 ML 1,000 ML IV SCH ×3 (01:29→13:25)
[2019-08-14] MEDS: MILK OF MAGNESIA PO SCH ×4 (01:29→20:44)
[2019-08-14 06:41] LABS: BASOPHILS % (AUTO) 0.8 % (0.2-1.0); EOSINOPHILS # (AUTO) 0.2 x10^3/uL (0.0-0.2); EOSINOPHILS % (AUTO) 4.5 % (0.9-2.9); HEMATOCRIT 38.2 % (42.0-54.0); HEMOGLOBIN 12.2 g/dL (13.5-18.0); LYMPHOCYTES # (AUTO) 1.6 X10^3/uL (1.3-2.9); LYMPHOCYTES % (AUTO) 33.7 % (21.0-51.0); MEAN CORPUSCULAR HEMOGLOBIN 26.5 pg (27.0-34.0); MEAN CORPUSCULAR VOLUME 82.9 fL (80.0-100.0); MEAN PLATELET VOLUME 7.3 fL (7.4-11.0); MONOCYTES # (AUTO) 0.4 x10^3/uL (0.3-0.8); NEUTROPHILS # (AUTO) 2.5 x10^3/uL (2.2-4.8); PLATELET COUNT 276 X10^3/uL (150.0-450.0); RED BLOOD COUNT 4.61 X10^6/uL (4.7-6.0); WHITE BLOOD COUNT 4.7 X10^3/uL (3.6-10.0)
[2019-08-14 06:48] LABS: ALANINE AMINOTRANSFERASE 54 Units/L (12-78); ALBUMIN 3.1 g/dL (3.4-5.0); ALKALINE PHOSPHATASE 89 Units/L (46-116); ASPARTATE AMINO TRANSFERASE 33 Units/L (15-37); BLOOD UREA NITROGEN 8 mg/dL (7-18); CALCIUM 8.9 mg/dL (8.5-10.1); CARBON DIOXIDE 32.9 mmol/L (21-32); CHLORIDE 102 mmol/L (98-107); COR CA(FOR HYPOALB) 9.6 mg/dL (8.5-10.1); COR NA(FOR HYPERGLY) 139 mmol/L (136-145); CREATININE 1.27 mg/dL (0.70-1.30); SODIUM 138 mmol/L (136-145); TOTAL PROTEIN 7.2 g/dL (6.4-8.2); eGFR NON BLACK RACES > 60 (>60)
[2019-08-14] MEDS: COLACE CAP 100 MG PO SCH ×2 (09:03→20:44)
[2019-08-14] MEDS: PEPCID 20 MG IV PREMIX* 20 MG/50 ML BAG IV SCH ×2 (09:03→20:44)
[2019-08-14] MEDS: K-DUR TAB 20 MEQ PO PRN (09:03)
[2019-08-14] MEDS: CARDIZEM CD 180 MG 24-HR PO SCH (09:04)
--- NOTE | 2019-08-14 10:41 | PCM.PROG ---
Progress Note - Progress Note for Day of Date of Exam: 08/14/19 - Subjective Subjective: IS BEING TREATED FOR ACUTE PULMONARY EMBOLI, ATRIAL FIBRILLATION, SYNCOPE, HYPERGLYCEMIA, CHRONIC KIDNEY DISEASE, AND HYPERTENSION. HE CONTINUES WITH MILD SHORTNESS OF BREATH TODAY, BUT CONTINUES TO REPORT IMPROVEMENT. ON EXAMINATION, HEART IS REGULAR IN RATE AND RHYTHM. BILATERAL LUNG ARE NOTED WITH DIMINISHED LUNG SOUNDS THROUGHOUT. ABDOMEN IS ROUND, SOFT, AND NON-TENDER WITH NORMAL BOWEL SOUNDS NOTED IN ALL QUADRANTS. HIS VITALS THIS MORNING ARE: 97.8-69-20-96%-159/94. LABS WERE OBTAINED. ABNORMAL LAB VALUES INCLUDE THE FOLLOWING: RBC 4.61, HGB 12.2, HCT 38.2, CARBON DIOXIDE 32.9, GLUCOSE 133, ALBUMIN 3.1, INR 1.02. HYPERCOAGULATION PANEL IS WITHIN NORMAL LIMITS. HE IS CURRENTLY RECEIVING CARDIZEM CD 180MG PO DAILY, HE IS ON THE HEPARIN DRIP, COUMADIN 5MG PO HS, HUMULIN R SLIDING SCALE, NORCO 5/325MG PO Q4H PRN, AND PEPCID 20MG IV Q12H. HE WILL REMAIN ON THE HEPARIN UNTIL THE COUMADIN IS THERAPEUTIC. WE WILL INCREASE HIS COUMADIN TO 7.5MG PO HS TONIGHT. WE WILL SET HIM UP FOR A SLEEP STUDY AFTER DISCHARGE. OTHERWISE, WE PLAN TO FOLLOW UP WITH AM LABS AND CONTINUE TO MONITOR. - Past Medical Family Social History Past Med/Fam/Surg Hx: No changes since H&P Allergies: Allergies No Known Drug Allergies Allergy (Verified 08/08/19 19:09) - Review of Systems ROS: No change since H&P - Vital Signs and I&O's Vital Signs: Temperature 97.7 F Pulse Rate [Left Brachial] 69 Pulse Rate [Apical] 78 Pulse Rate 98 Respiratory Rate 20 Blood Pressure [Right Arm] 161/67 Blood Pressure [Left Arm] 159/94 Blood Pressure 192/102 O2 Sat by Pulse Oximetry 96 Intake and Output: Intake & Output 08/11/19 08/12/19 08/13/19 08/14/19 11:59 11:59 11:59 11:59 Intake Total 4365 / 4365 4522 / 4522 4729 / 4729 4290 / 4290 Output Total 3750 / 3750 2700 / 2700 2200 / 2200 Balance 615 / 615 1822 / 1822 4729 / 4729 2090 / 2090 - Physical Exam Oriented: Normal Eyes: Normal Ear: Normal Nose: Normal Throat: Normal Respiratory: Generalized, Diminished Cardiovascular: Normal. negative: S3, S4, Murmur : Normal Auscultation: Bowel Sounds: Normal Palpation: Normal Tenderness: Normal Skin: Normal Musculoskeletal: Normal Psychiatric: Normal Mood Description: Calm Affect: Normal Speech Pattern: Clear, Appropriate - Laboratory and Diagnostics Result Diagrams: 08/14/19 06:29 08/14/19 06:29 Labs: Laboratory WBC 4.7 X10^3/uL (3.6-10.0) 08/14/19 06: RBC 4.61 X10^6/uL (4.7-6.0) L 08/14/19 06: Hgb 12.2 g/dL (13.5-18.0) L 08/14/19 06: Hct 38.2 % (42.0-54.0) L 08/14/19 06: MCV 82.9 fL (80.0-100.0) 08/14/19 06: MCH 26.5 pg (27.0-34.0) L 08/14/19 06: MCHC 32.0 g/dL (33.0-35.0) L 08/14/19 06: RDW 16.0 % (11.6-16.5) 08/14/19 06: Plt Count 276 X10^3/uL (150.0-450.0) 08/14/19 06: MPV 7.3 fL (7.4-11.0) L 08/14/19 06: Neut % (Auto) 53.0 % (42.0-75.0) 08/14/19 06: Lymph % (Auto) 33.7 % (21.0-51.0) 08/14/19 06: [place] % (Auto) 8.0 % (0.0-13.0) 08/14/19 06: Eos % (Auto) 4.5 % (0.9-2.9) H 08/14/19 06: Baso % (Auto) 0.8 % (0.2-1.0) 08/14/19 06:29 Neut # (Auto) 2.5 x10^3/uL (2.2-4.8) 08/14/19 06:29 Lymph # (Auto) 1.6 X10^3/uL (1.3-2.9) 08/14/19 06:29 [place] # (Auto) 0.4 x10^3/uL (0.3-0.8) 08/14/19 06:29 Eos # (Auto) 0.2 x10^3/uL (0.0-0.2) 08/14/19 06:29 Baso # (Auto) 0.0 X10^3/uL (0.0-0.1) 08/14/19 06:29 Absolute Nucleated RBC 0.1 /100WBC 08/14/19 06:29 ESR 36 MM/HOUR (0-15) H 08/09/19 11:30 PT 13.1 SECONDS (11.8-14.3) 08/14/19 06:29 INR Target Range - 08/14/19 06:29 INR 1.02 (0.8-1.3) 08/14/19 06:29 APTT 91.2 SECONDS (22.9-36.5) H 08/14/19 06:29 PTT Heparin Neutraliz TNP 08/09/19 11:30 PTT Comment - 08/14/19 06:29 Reptilase Time TNP 08/09/19 11:30 D-Dimer 1680 ng/mL (0-400) H* 08/08/19 20:41 Plt Neutralization TNP 08/09/19 11:30 LA PTT Screen 42 08/09/19 11:30 Lupus Anticoag PTT Mix TNP 08/09/19 11:30 LA Thrombin Time TNP 08/09/19 11:30 LA dRVVT Screen Ratio 36 08/09/19 11:30 dRVVT Confirm Interp TNP 08/09/19 11:30 dRVVT Mix Interpret TNP 08/09/19 11:30 Hexag Phospholip Neutrl TNP 08/09/19 11:30 Lupus Anticoag Interp See note 08/09/19 11:30 Prot C Funct Activity 108 % (83-168) 08/09/19 11:30 APC Resistance Ratio 3.99 (>=2.00) 08/09/19 11:30 Protein S Activity 114 % (66-143) 08/09/19 11:30 Antithrombin III Activ 100 % (76-128) 08/09/19 11:30 Sodium 138 mmol/L (136-145) 08/14/19 06:29 Corrected Sodium 139 mmol/L (136-145) 08/14/19 06:29 Potassium 3.8 mmol/L (3.5-5.1) 08/14/19 06:29 Chloride 102 mmol/L (98-107) 08/14/19 06:29 Carbon Dioxide 32.9 mmol/L (21-32) H 08/14/19 06:29 BUN 8 mg/dL (7-18) 08/14/19 06:29 Creatinine 1.27 mg/dL (0.70-1.30) 08/14/19 06:29 Est GFR (MDRD) Af Amer > 60 (>60) 08/14/19 06:29 Est GFR (MDRD) Non-Af > 60 (>60) 08/14/19 06:29 Glucose 133 mg/dL (65-99) H 08/14/19 06:29 Calcium 8.9 mg/dL (8.5-10.1) 08/14/19 06:29 Corrected Calcium 9.6 mg/dL (8.5-10.1) 08/14/19 06:29 Magnesium 2.4 mg/dL (1.7-2.9) 08/13/19 03:53 Ferritin 228 ng/mL (26-388) 08/10/19 05:26 Total Bilirubin 0.30 mg/dL (0.2-1.0) 08/14/19 06:29 AST 33 Units/L (15-37) 08/14/19 06:29 ALT 54 Units/L (12-78) 08/14/19 06:29 Alkaline Phosphatase 89 Units/L (46-116) 08/14/19 06:29 Lactate Dehydrogenase 236 Units/L (85-227) H 08/09/19 07:12 Creatine Kinase 267 Units/L (39-308) 08/08/19 20:41 CK-MB (CK-2) < 1.0 ng/mL (0-4.0) 08/08/19 20:41 CK/CKMB % Calc 0.4 % (<4) 08/08/19 20:41 Troponin I < 0.02 ng/mL (0-1.5) 08/08/19 20:41 C-Reactive Protein 29.10 mg/L (0-3.0) H 08/10/19 05:26 Total Protein 7.2 g/dL (6.4-8.2) 08/14/19 06:29 Albumin 3.1 g/dL (3.4-5.0) L 08/14/19 06:29 Globulin 4.1 g/dL (2.5-4.5) 08/14/19 06:29 Albumin/Globulin Ratio 0.8 Ratio (1.1-2.1) L 08/14/19 06:29 Homocysteine 8 umol/L (<=10) 08/09/19 11:30 Specimen Type Clean catch urine 08/08/19 20:10 Urine Color Yellow (YELLOW) 08/08/19 20:10 Urine Appearance Clear (CLEAR) 08/08/19 20:10 Urine pH 6.0 (5.0 - 8.0) 08/08/19 20:10 Ur Specific [place] 1.025 (1.000-1.030) 08/08/19 20:10 Urine Protein 1+ (NEGATIVE) 08/08/19 20:10 Urine Glucose (UA) Negative (NEGATIVE) 08/08/19 20:10 Urine Ketones Negative (NEGATIVE) 08/08/19 20:10 Urine Occult Blood Negative (NEGATIVE) 08/08/19 20:10 Urine Nitrite Negative (NEGATIVE) 08/08/19 20:10 Urine Bilirubin Negative (NEGATIVE) 08/08/19 20:10 Urine Urobilinogen Normal (NORMAL) 08/08/19 20:10 Ur Leukocyte Esterase Negative (NEGATIVE) 08/08/19 20:10 Urine RBC None seen /HPF (0-3) 08/08/19 20:10 Urine WBC None seen /HPF (0-5) 08/08/19 20:10 Ur Squamous Epith Cells Rare /HPF (NEGATIVE) 08/08/19 20:10 Calcium Oxalate Crystal Moderate /HPF (NEGATIVE) 08/08/19 20:10 Urine Bacteria Negative /HPF (NEGATIVE) 08/08/19 20:10 Urine Mucus Few /HPF (NEGATIVE) 08/08/19 20:10 Ur Culture Indicated? No/not indicated 08/08/19 20:10 Urine Opiates Screen Negative (NEG=<300) 08/08/19 20:10 Urine Methadone Screen Negative (NEG=<300) 08/08/19 20:10 Ur Barbiturates Screen Negative (NEG=<200) 08/08/19 20:10 Ur Phencyclidine Scrn Negative (NEG=<25) 08/08/19 20:10 Ur Amphetamines Screen Negative (NEG=<1000) 08/08/19 20:10 U Benzodiazepines Scrn Negative (NEG=<200) 08/08/19 20:10 Urine Cocaine Screen Negative (NEG=<300) 08/08/19 20:10 U Marijuana (THC) Screen Negative (NEG=<50) 08/08/19 20:10 [place] Screen None detected (None Detected) 08/09/19 11:30 [place] Titer TNP 08/09/19 11:30 [place] Pattern TNP 08/09/19 11:30 SARS-CoV-2 (PCR) Negative (NEGATIVE) 08/10/19 09:20 Prothromb Gene Review Not Reportable 08/09/19 11:30 Miscellaneous Test Covid 19 08/09/19 06:10 - Plan (1) Acute pulmonary embolism Status: Acute Qualifiers: Pulmonary embolism type: unspecified Acute cor pulmonale presence: unspecified Qualified Code(s): I26.99 - Other pulmonary embolism without acute cor pulmonale Plan: HEPARIN DRIP, COUMADIN 7.5MG PO HS, HUMULIN R SLIDING SCALE, NORCO 5/325MG PO Q4H PRN, AND PEPCID 20MG IV Q12H, HYPERCOAG PANEL, ECHO, CONTINUE TO MONITOR (2) Atrial fibrillation Status: Acute Qualifiers: Atrial fibrillation type: unspecified Qualified Code(s): I48.91 - Unspecified atrial fibrillation Plan: CARDIZEM DC 180MG PO DAILY, CONTINUE TO MONITOR (3) Syncope Status: Acute Qualifiers: Encounter type: initial encounter (4) Hyperglycemia Status: Acute (5) Chronic kidney disease (CKD) Status: Chronic Qualifiers: Chronic kidney disease stage: stage 3 (moderate) Qualified Code(s): N18.3 - Chronic kidney disease, stage 3 (moderate) (6) Hypertension Status: Chronic Qualifiers: Hypertension type: essential hypertension Qualified Code(s): I10 - Essential (primary) hypertension
[2019-08-14] MEDS: NORVASC TAB 5 MG PO SCH (15:18)
[2019-08-14] MEDS: COUMADIN TAB 7.5 MG PO SCH (20:43)
[2019-08-15] MEDS: HEPARIN SODIUM IN D5W 25,000 UNITS/500 ML BAG IV PRN ×2 (05:19→16:11)
[2019-08-15 07:34] LABS: BASOPHILS % (AUTO) 0.5 % (0.2-1.0); EOSINOPHILS # (AUTO) 0.2 x10^3/uL (0.0-0.2); LYMPHOCYTES # (AUTO) 1.5 X10^3/uL (1.3-2.9); LYMPHOCYTES % (AUTO) 33.4 % (21.0-51.0); MEAN CORPUSCULAR HEMOGLOBIN 26.5 pg (27.0-34.0); MEAN CORPUSCULAR HGB CONC 31.6 g/dL (33.0-35.0); MEAN CORPUSCULAR VOLUME 83.7 fL (80.0-100.0); MEAN PLATELET VOLUME 8.1 fL (7.4-11.0); MONOCYTES # (AUTO) 0.4 x10^3/uL (0.3-0.8); MONOCYTES % (AUTO) 7.8 % (0.0-13.0); NEUTROPHILS # (AUTO) 2.5 x10^3/uL (2.2-4.8); NEUTROPHILS % (AUTO) 54.3 % (42.0-75.0); PLATELET COUNT 303 X10^3/uL (150.0-450.0); RED BLOOD COUNT 4.54 X10^6/uL (4.7-6.0); RED CELL DISTRIBUTION WIDTH 16.3 % (11.6-16.5); WHITE BLOOD COUNT 4.5 X10^3/uL (3.6-10.0)
[2019-08-15 07:48] LABS: ALANINE AMINOTRANSFERASE 52 Units/L (12-78); ALBUMIN 3.2 g/dL (3.4-5.0); ALKALINE PHOSPHATASE 89 Units/L (46-116); ASPARTATE AMINO TRANSFERASE 28 Units/L (15-37); BLOOD UREA NITROGEN 7 mg/dL (7-18); CALCIUM 9.1 mg/dL (8.5-10.1); CARBON DIOXIDE 30.2 mmol/L (21-32); CHLORIDE 101 mmol/L (98-107); COR CA(FOR HYPOALB) 9.7 mg/dL (8.5-10.1); COR NA(FOR HYPERGLY) 140 mmol/L (136-145); CREATININE 1.22 mg/dL (0.70-1.30); SODIUM 139 mmol/L (136-145); TOTAL PROTEIN 7.3 g/dL (6.4-8.2); eGFR NON BLACK RACES > 60 (>60)
[2019-08-15] MEDS: NS 1000 ML 1,000 ML IV SCH ×2 (09:34→19:09)
[2019-08-15] MEDS: PEPCID 20 MG IV PREMIX* 20 MG/50 ML BAG IV SCH ×2 (09:35→20:58)
[2019-08-15] MEDS: COLACE CAP 100 MG PO SCH ×2 (09:36→20:57)
[2019-08-15] MEDS: NORVASC TAB 5 MG PO SCH (09:36)
[2019-08-15] MEDS: CARDIZEM CD 180 MG 24-HR PO SCH (09:44)
[2019-08-15] MEDS: MILK OF MAGNESIA PO SCH ×2 (10:46→20:58)
[2019-08-15] MEDS: NORCO 5/325 MG TAB PO PRN (15:30)
[2019-08-15] MEDS: COUMADIN TAB 7.5 MG PO SCH (20:57)
[2019-08-16] MEDS: NS 1000 ML 1,000 ML IV SCH ×2 (02:08→17:23)
[2019-08-16 07:19] LABS: BASOPHILS % (AUTO) 0.7 % (0.2-1.0); EOSINOPHILS # (AUTO) 0.2 x10^3/uL (0.0-0.2); EOSINOPHILS % (AUTO) 4.3 % (0.9-2.9); HEMATOCRIT 37.7 % (42.0-54.0); LYMPHOCYTES # (AUTO) 1.4 X10^3/uL (1.3-2.9); LYMPHOCYTES % (AUTO) 32.9 % (21.0-51.0); MEAN CORPUSCULAR HEMOGLOBIN 26.7 pg (27.0-34.0); MEAN CORPUSCULAR HGB CONC 31.8 g/dL (33.0-35.0); MEAN PLATELET VOLUME 8.2 fL (7.4-11.0); MONOCYTES # (AUTO) 0.4 x10^3/uL (0.3-0.8); MONOCYTES % (AUTO) 9.5 % (0.0-13.0); NEUTROPHILS # (AUTO) 2.3 x10^3/uL (2.2-4.8); NEUTROPHILS % (AUTO) 52.6 % (42.0-75.0); PLATELET COUNT 306 X10^3/uL (150.0-450.0); RED BLOOD COUNT 4.49 X10^6/uL (4.7-6.0); RED CELL DISTRIBUTION WIDTH 15.5 % (11.6-16.5); WHITE BLOOD COUNT 4.4 X10^3/uL (3.6-10.0)
[2019-08-16] MEDS: HEPARIN SODIUM IN D5W 25,000 UNITS/500 ML BAG IV PRN ×2 (07:21→23:00)
[2019-08-16 07:23] LABS: ALANINE AMINOTRANSFERASE 50 Units/L (12-78); ALKALINE PHOSPHATASE 88 Units/L (46-116); ASPARTATE AMINO TRANSFERASE 25 Units/L (15-37); BLOOD UREA NITROGEN 7 mg/dL (7-18); CALCIUM 9.2 mg/dL (8.5-10.1); CARBON DIOXIDE 30.5 mmol/L (21-32); CHLORIDE 102 mmol/L (98-107); COR NA(FOR HYPERGLY) 139 mmol/L (136-145); SODIUM 138 mmol/L (136-145); eGFR NON BLACK RACES > 60 (>60)
[2019-08-16] MEDS: COLACE CAP 100 MG PO SCH ×2 (09:25→21:00)
[2019-08-16] MEDS: NORVASC TAB 5 MG PO SCH (09:25)
[2019-08-16] MEDS: CARDIZEM CD 180 MG 24-HR PO SCH (09:26)
[2019-08-16] MEDS: PEPCID 20 MG IV PREMIX* 20 MG/50 ML BAG IV SCH ×2 (09:29→21:00)
[2019-08-16] MEDS: MILK OF MAGNESIA PO SCH ×2 (09:35→23:02)
[2019-08-16] MEDS: NORCO 5/325 MG TAB PO PRN (21:00)
[2019-08-16] MEDS: COUMADIN TAB 7.5 MG PO SCH (21:00)
[2019-08-17] MEDS: NS 1000 ML 1,000 ML IV SCH ×2 (06:06→06:26)
[2019-08-17 06:28] LABS: BASOPHILS % (AUTO) 0.7 % (0.2-1.0); EOSINOPHILS # (AUTO) 0.2 x10^3/uL (0.0-0.2); EOSINOPHILS % (AUTO) 4.2 % (0.9-2.9); HEMATOCRIT 37.1 % (42.0-54.0); LYMPHOCYTES # (AUTO) 1.6 X10^3/uL (1.3-2.9); LYMPHOCYTES % (AUTO) 34.5 % (21.0-51.0); MEAN CORPUSCULAR HEMOGLOBIN 26.8 pg (27.0-34.0); MEAN CORPUSCULAR HGB CONC 32.3 g/dL (33.0-35.0); MEAN CORPUSCULAR VOLUME 82.8 fL (80.0-100.0); MEAN PLATELET VOLUME 7.4 fL (7.4-11.0); MONOCYTES # (AUTO) 0.4 x10^3/uL (0.3-0.8); MONOCYTES % (AUTO) 8.5 % (0.0-13.0); NEUTROPHILS # (AUTO) 2.4 x10^3/uL (2.2-4.8); NEUTROPHILS % (AUTO) 52.1 % (42.0-75.0); PLATELET COUNT 304 X10^3/uL (150.0-450.0); RED BLOOD COUNT 4.48 X10^6/uL (4.7-6.0); RED CELL DISTRIBUTION WIDTH 15.6 % (11.6-16.5); WHITE BLOOD COUNT 4.6 X10^3/uL (3.6-10.0)
[2019-08-17 06:52] LABS: ALANINE AMINOTRANSFERASE 49 Units/L (12-78); ALKALINE PHOSPHATASE 85 Units/L (46-116); ASPARTATE AMINO TRANSFERASE 25 Units/L (15-37); BLOOD UREA NITROGEN 11 mg/dL (7-18); CALCIUM 8.9 mg/dL (8.5-10.1); CARBON DIOXIDE 30.4 mmol/L (21-32); CHLORIDE 101 mmol/L (98-107); COR CA(FOR HYPOALB) 9.7 mg/dL (8.5-10.1); COR NA(FOR HYPERGLY) 138 mmol/L (136-145); CREATININE 1.34 mg/dL (0.70-1.30); SODIUM 137 mmol/L (136-145); eGFR NON BLACK RACES 59 (>60)
[2019-08-17] MEDS: PEPCID 20 MG IV PREMIX* 20 MG/50 ML BAG IV SCH (09:56)
[2019-08-17] MEDS: CARDIZEM CD 180 MG 24-HR PO SCH (09:56)
[2019-08-17] MEDS: COLACE CAP 100 MG PO SCH (09:56)
[2019-08-17] MEDS: NORVASC TAB 5 MG PO SCH (09:56)
[2019-08-17] MEDS: MILK OF MAGNESIA PO SCH (09:57)
[2019-08-17 09:58] LABS: PROTHROMBIN G20210A Negative
[2019-08-17 13:45] VITALS: BP 179/88
== END 2019-08-17 11:50 | disposition home or self-care (01) | DRG 176 ==
LOC: ER 18:51 → ICU 08-09 00:47 → MED/SURG 08-10 17:49
PROVIDERS: ADMIT Internal Medicine; ATTEND Internal Medicine
DX: I12.9 Hypertensive chronic kidney disease with stage 1 through stage 4 chronic kidney disease, or unspecified chronic kidney disease; E11.65 Type 2 diabetes mellitus with hyperglycemia; I26.99 Other pulmonary embolism without acute cor pulmonale; Z11.59 Encounter for screening for other viral diseases; I48.91 Unspecified atrial fibrillation; N18.3 Chronic kidney disease, stage 3 (moderate); R55 Syncope and collapse; J44.9 Chronic obstructive pulmonary disease, unspecified
CPT/HCPCS: 36415; 51702; 70450; 71010; 71045; 71275; 80053; 80307; 81001; 81240; 82550; 82553; 82615; 82728; 83090; 83615; 83735; 84484; 85025; 85300; 85303; 85305; 85306; 85307; 85378; 85597; 85610; 85613; 85635; 85652; 85670; 85730; 85732; 86038; 86140; 86308; 87635; 93005; 93041; 93306; 96365; 96374; 96375; 99284; A4216; A4222; J1160; J1644; J1940; J7030; J7040; S0028